=== PATIENT | male | born 1990 | race African-American/Black ===

== ENCOUNTER 2019-02-16 22:57 | Emergency (ER) | payer SELFPAY ==
[2019-02-16] MEDS ORDERED: IBUPROFEN 400 MG TAB ONE (23:43)
[2019-02-16] MEDS ORDERED: LIDOCAINE 2% MPF 5 ML VIAL ONE (23:44)
--- NOTE | 2019-02-17 00:58 | EDPHYS ---
Physician Documentation [facility] Name: Estevan Larsen III Age: 28 yrs Sex: Male : 1990 Arrival Date: 02/16/2019 Time: 23:00 Bed 12 Private MD: ED Physician Isaiah Agee HPI: 02/16 23:25 This 28 yrs old Black Male presents to ER via Ambulatory with complaints of Laceration, cp Finger. 23:25 The patient or guardian reports a laceration, simple. cp 23:25 The complaints affect the MCP of left little finger. Context: resulted from piece of cp glass. Onset: The symptoms/episode began/occurred today. Associated signs and symptoms: Pertinent negatives: cyanosis distally, decreased sensation distally. Severity of symptoms: in the emergency department the symptoms are unchanged, despite home interventions. Historical: - Allergies: 23:02 No Known Allergies; jb4 - Home Meds: 23:02 None [Active]; jb4 - PMHx: 23:02 None; jb4 - PSHx: 23:02 Cholecystectomy; jb4 - Immunization history:: Adult Immunizations up to date, Last tetanus immunization: up to date. - Social history:: Smoking status: Patient uses tobacco products, smokes one pack cigarettes per day. Patient uses alcohol, 2-3 every other day.. - Ebola Screening: : No symptoms or risks identified at this time. ROS: 23:30 Constitutional: Negative for body aches, chills, fever, poor PO intake. cp 23:30 Eyes: Negative for injury, pain, redness, and discharge. cp 23:30 Respiratory: Negative for cough, wheezing. 23:30 Abdomen/GI: Negative for abdominal pain, vomiting, diarrhea, constipation. 23:30 Skin: Positive for laceration(s), of the dorsal aspect of head of fifth metacarpal. 23:30 Neuro: Negative for headache, numbness, weakness. 23:30 All other systems are negative. Exam: 23:45 Constitutional: The patient appears in no acute distress, alert, awake, comfortable, cp well developed, well nourished. 23:45 Head/Face: Normocephalic, atraumatic. cp 23:45 Musculoskeletal/extremity: Extremities: grossly normal except: noted in the dorsal aspect of head of fifth metacarpal: laceration, There is no evidence of decreased ROM, deformity, ROM: full active range of motion, in the left fifth finger, Perfusion: the extremity is normally perfused throughout, Sensation intact. Tendon exam: specific tendon testing normal through active and passive range of motion Vital Signs: 23:02 BP 157 / 78; Pulse 86; Resp 16; Temp 98.5; Pulse Ox 98% on R/A; Weight 113.4 kg (R); jb4 Height 5 ft. 11 in. (180.34 cm); Pain 6/10; 02/17 00:40 BP 140 / 70; Pulse 77; Resp 16; Pulse Ox 99% on R/A; jb4 02/16 23:02 Body Mass Index 34.87 (113.40 kg, 180.34 cm) jb4 Laceration: 01:00 Wound Repair of 3.5cm ( 1.4in ) subcutaneous laceration to MCP of left little finger. cp Linear shaped.. Distal neuro/vascular/tendon intact. Anesthesia: Wound infiltrated with 3 mls of 2% lidocaine. Wound prep: Moderate cleansing by nurse. Skin closed with 5 4-0 Prolene using interrupted sutures and sterile technique. Dressed with Bacitracin, 4x4's. Patient tolerated well. MDM: 02/16 23:16 Patient medically screened. cp 23:45 Differential diagnosis: open fracture, closed fracture, tendon injury, simple cp laceration. 02/17 00:56 ED course: xrays of left hand negative for fracture. cp 00:57 Data reviewed: vital signs, nurses notes, radiologic studies, plain films. cp 00:57 Test interpretation: by ED physician or midlevel provider: plain radiologic studies, cp xrays of left hand negative for fracture. 00:58 Counseling: I had a detailed discussion with the patient and/or guardian regarding: the cp historical points, exam findings, and any diagnostic results supporting the discharge/admit diagnosis, radiology results, the need for outpatient follow up, a family practitioner, to return to the emergency department if symptoms worsen or persist or if there are any questions or concerns that arise at home. 00:58 Response to treatment: the patient's symptoms have markedly improved after treatment, cp and as a result, I will discharge patient. 02/16 23:27 Order name: XRAY Hand LEFT 3 View cp 02/16 23:32 Order name: Hand Left 3 View EDMS 02/16 23:27 Order name: Gloves, Sterile; Complete Time: 23:44 cp 02/16 23:27 Order name: Setup Suture Tray; Complete Time: 23:44 cp 02/16 23:27 Order name: Wound Care: please clean and irrigate wound; Complete Time: 23:44 cp Administered Medications: 02/16 23:33 Drug: Ibuprofen 800 mg Route: PO; jb4 02/17 00:35 Follow up: Response: No adverse reaction; Pain is decreased jb4 00:45 Drug: Lidocaine (2 %) 5 ml {Note: Administered by ED provider..} Volume: 5 ml; Route: aa1 Infiltration; 01:13 Follow up: Response: No adverse reaction aa1 Disposition: 02/17/19 00:58 Discharged to Home. Impression: Laceration without foreign body of left hand. - Condition is Stable. - Discharge Instructions: Laceration Care, Adult. - Prescriptions for Ibuprofen 800 mg Oral Tablet - take 1 tablet by ORAL route every 8 hours As needed take with food; 30 tablet. Keflex 500 mg Oral Capsule - take 1 capsule by ORAL route every 8 hours for 10 days; 21 capsule. - Medication Reconciliation Form, Thank You Letter, Antibiotic Education, Prescription Opioid Use form. - Follow up: Private Physician; When: 7 - 10 days; Reason: Staple/Suture removal. - Problem is new. - Symptoms have improved. Signatures: Dispatcher [employer] [facility] Bianca Tam RN RN aa1 Cash Harmon PA PA cp Bryson, James RN RN jb4 Corrections: (The following items were deleted from the chart) 01:12 02/16 23:27 Dressing - Wound ordered. cp aa1 02/17 01:12 00:56 Splint - Finger ordered. cp aa1 01:16 00:58 02/17/2019 00:58 Discharged to Home. Impression: Laceration without foreign body aa1 of left hand. Condition is Stable. Forms are Medication Reconciliation Form, Thank You Letter, Antibiotic Education, Prescription Opioid Use. Follow up: Private Physician; When: 7 - 10 days; Reason: Staple/Suture removal. Problem is new. Symptoms have improved. cp
--- NOTE | 2019-02-17 00:58 | ER ---
Nurse's Notes [facility] Name: Estevan Larsen III Age: 28 yrs Sex: Male : 1990 Arrival Date: 02/16/2019 Time: 23:00 Bed 12 Private MD: Diagnosis: Laceration without foreign body of left hand Presentation: 02/16 23:02 Presenting complaint: Patient states: I cut the left pinky about 6 hours ago. I tried jb4 to treat it at home with paper stitches but it opened back up and would not stop bleeding. 23:02 Transition of care: patient was not received from another setting of care. Complicating jb4 Factors: There are no complicating factors for this patient. Onset of symptoms was February 16, 2019. Risk Assessment: Do you want to hurt yourself or someone else? Patient reports no desire to harm self or others. Initial Sepsis Screen: Does the patient meet any 2 criteria? No. Patient's initial sepsis screen is negative. Does the patient have a suspected source of infection? No. Patient's initial sepsis screen is negative. Care prior to arrival: None. 23:02 Method Of Arrival: Ambulatory jb4 23:02 Acuity: MAYNOR 4 jb4 Triage Assessment: 23:02 General: Appears in no apparent distress. uncomfortable, Behavior is calm, cooperative, jb4 appropriate for age. Pain: Complains of pain in dorsal aspect of proximal phalanx of left little finger Pain does not radiate. Pain currently is 6 out of 10 on a pain scale. Quality of pain is described as throbbing. EENT: No signs and/or symptoms were reported regarding the EENT system. Neuro: Level of Consciousness is awake, alert, obeys commands, Oriented to person, place, time, situation. Cardiovascular: Patient's skin is warm and dry. Respiratory: Airway is patent Respiratory effort is even, unlabored, Respiratory pattern is regular, symmetrical. GI: No signs and/or symptoms were reported involving the gastrointestinal system. : No signs and/or symptoms were reported regarding the genitourinary system. Derm: Skin Laceration to the left pinky Skin is dry, Skin is normal, Skin temperature is warm. Musculoskeletal: Circulation, motion, and sensation intact. Range of motion: intact in all extremities. Injury Description: Laceration sustained to dorsal aspect of proximal phalanx of left little finger is clean, contaminated, 2.6 to 7.5 cm long, not bleeding. Historical: - Allergies: 23:02 No Known Allergies; jb4 - Home Meds: 23:02 None [Active]; jb4 - PMHx: 23:02 None; jb4 - PSHx: 23:02 Cholecystectomy; jb4 - Immunization history:: Adult Immunizations up to date, Last tetanus immunization: up to date. - Social history:: Smoking status: Patient uses tobacco products, smokes one pack cigarettes per day. Patient uses alcohol, 2-3 every other day.. - Ebola Screening: : No symptoms or risks identified at this time. Screenin:02 Abuse screen: Denies threats or abuse. Nutritional screening: No deficits noted. 4 Tuberculosis screening: No symptoms or risk factors identified. Fall Risk None identified. Assessment: 23:02 General: see triage assessment. [facility] 02/17 00:34 Reassessment: Patient appears in no apparent distress at this time. Patient and/or jb4 family updated on plan of care and expected duration. Pain level reassessed. Patient is alert, oriented x 3, equal unlabored respirations, skin warm/dry/pink. Patient states feeling better. 01:14 Reassessment: Patient appears in no apparent distress at this time. Patient and/or aa1 family updated on plan of care and expected duration. Pain level reassessed. Patient is alert, oriented x 3, equal unlabored respirations, skin warm/dry/pink. Pt left ED ambulatory, with steady gate. No IV access this ED visit. Vital Signs: 02/16 23:02 BP 157 / 78; Pulse 86; Resp 16; Temp 98.5; Pulse Ox 98% on R/A; Weight 113.4 kg (R); 4 Height 5 ft. 11 in. (180.34 cm); Pain 6/10; 02/17 00:40 BP 140 / 70; Pulse 77; Resp 16; Pulse Ox 99% on R/A; 4 02/16 23:02 Body Mass Index 34.87 (113.40 kg, 180.34 cm) [facility] ED Course: 02/16 23:00 Patient arrived in ED. es 23:02 Arm band placed on right wrist. jb4 23:02 Patient has correct armband on for positive identification. Pulse ox on. NIBP on. jb4 23:09 Omar Schreiber, RN is Primary Nurse. jb4 23:10 Triage completed. jb4 23:16 Cash Harmon PA is PHCP. cp 23:16 Isaiah Agee MD is Attending Physician. cp 23:45 Hand Left 3 View In Process Unspecified. EDMS 02/17 00:36 XRAY Hand LEFT 3 View In Process Unspecified. EDMS 00:45 Assist provider with laceration repair on dorsal aspect of proximal phalanx of left aa1 little finger that was between 2.6 to 7.5 cm using sutures. Set up tray. Performed by Cash GONZALES Patient tolerated well. 00:45 Patient did not have IV access during this emergency room visit. aa1 Administered Medications: 02/16 23:33 Drug: Ibuprofen 800 mg Route: PO; jb4 02/17 00:35 Follow up: Response: No adverse reaction; Pain is decreased jb4 00:45 Drug: Lidocaine (2 %) 5 ml {Note: Administered by ED provider..} Volume: 5 ml; Route: aa1 Infiltration; 01:13 Follow up: Response: No adverse reaction aa1 Outcome: 00:58 Discharge ordered by . cp 01:16 Discharged to home ambulatory. aa1 01:16 Condition: stable 01:16 Discharge instructions given to patient, Instructed on discharge instructions, follow up and referral plans. medication usage, Demonstrated understanding of instructions, follow-up care, medications, Prescriptions given X 2. 01:16 Patient left the ED. aa1 Signatures: Dispatcher [employer] [facility] Bianca Tam RN RN aa1 Nicole Magaña Corey, PA PA cp Omar Schreiber, RN RN jb4
--- NOTE | 2019-02-17 07:51 | RAD REPORT ---
EXAM DESCRIPTION: RAD -Hand Left 3 View - 02/16/2019 11:45 pm CLINICAL HISTORY: Left hand pain status post injury FINDINGS: No fracture or dislocation is seen.
[2019-02-17 10:19] VITALS: TEMP 98.5
[2019-02-17 10:20] VITALS: BP 140/70; O2SAT 99
== END 2019-02-17 01:16 | disposition home or self-care (01) ==
LOC: ER 22:57
PROC: 0JQK0ZZ Repair Left Hand Subcutaneous Tissue and Fascia, Open Approach (ICD-10-PCS; principal; 2019-02-16)
DX: S61.217A Laceration without foreign body of left little finger without damage to nail, initial encounter (principal); W25.XXXA Contact with sharp glass, initial encounter; F17.210 Nicotine dependence, cigarettes, uncomplicated
CPT/HCPCS: 99284

== ENCOUNTER 2019-02-27 23:23 | Emergency (ER) | payer SELFPAY ==
[2019-02-27] MEDS ORDERED: KETOROLAC 30 MG/ML INJ ONE (23:58)
[2019-02-27] MEDS ORDERED: NA CHLORIDE 0.9% 1,000 ML ONE (23:58)
[2019-02-28 00:18] LABS: Absolute Lymphocytes (CBC) 1.7 K/uL (0.7-4.9); Absolute Neutrophil 13.3 K/uL (1.8-8.0); Basophils % 0.5 % (0-1.3); Eosinophils % 0.3 % (0-4.4); Hematocrit 52.2 % (39.6-49.0); Lymphocytes % 10.7 % (15.3-44.8); MPV 8.4 fL (7.6-11.3); RBC Red Blood Cell Count 6.07 M/uL (4.33-5.43)
[2019-02-28 00:33] LABS: BUN Blood Urea Nitrogen 5 mg/dL (7-18); Bicarbonate 23 mmol/L (21-32); Glucose Level 88 mg/dL (74-106); Potassium 3.8 mmol/L (3.5-5.1); Sodium Level 140 mmol/L (136-145)
[2019-02-28] MEDS ORDERED: SMZ./TMP. 800/160 MG TABLET ONE (00:54)
[2019-02-28] MEDS ORDERED: CLINDAMYCIN 900MG/D5W 900 MG/50 ML IVPB IV ONE (00:54)
--- NOTE | 2019-02-28 01:07 | ER ---
Nurse's Notes [facility] Name: Estevan Larsen III Age: 28 yrs Sex: Male : 1990 Arrival Date: 02/27/2019 Time: 23:24 Bed 14 Private MD: Diagnosis: Other synovitis and tenosynovitis, hand-right thumb Presentation: 02/27 23:31 Presenting complaint: Patient states: Swelling to right thumb after injury at work with lp1 rebar a month ago; Seen at [place] [facility] a few days ago, unable to fill prescriptions due to cost; States swelling and pain to right thumb worse. Transition of care: patient was not received from another setting of care. Onset of symptoms was February 27, 2019. Risk Assessment: Do you want to hurt yourself or someone else? Patient reports no desire to harm self or others. Care prior to arrival: None. 23:31 Method Of Arrival: Ambulatory lp1 23:31 Acuity: MAYNOR 3 lp1 23:34 Initial Sepsis Screen: Does the patient meet any 2 criteria? HR > 90 bpm. Does the lp1 patient have a suspected source of infection? Yes: Other: Right thumb. Historical: - Allergies: 23:34 No Known Allergies; lp1 - Home Meds: 23:34 None [Active]; lp1 - PMHx: 23:34 Hypertension; lp1 - PSHx: 23:34 Cholecystectomy; lp1 - Immunization history:: Adult Immunizations up to date. - Social history:: Smoking status: Patient uses tobacco products, smokes one-half pack cigarettes per day. - Ebola Screening: : No symptoms or risks identified at this time. Screenin:34 Abuse screen: Denies threats or abuse. Denies injuries from another. Nutritional lp1 screening: No deficits noted. Tuberculosis screening: No symptoms or risk factors identified. Fall Risk None identified. Assessment: 23:30 General: Appears in no apparent distress. uncomfortable, Behavior is calm, cooperative, rr5 appropriate for age. Pain: Complains of pain in right thumb Pain does not radiate. Pain currently is 10 out of 10 on a pain scale. Quality of pain is described as throbbing, Pain began gradually, Is intermittent. Neuro: Level of Consciousness is awake, alert, obeys commands, Oriented to person, place, time, situation, Appropriate for age. Cardiovascular: Capillary refill < 3 seconds Patient's skin is warm and dry. Respiratory: Airway is patent Respiratory effort is even, unlabored, Respiratory pattern is regular, symmetrical. GI: No signs and/or symptoms were reported involving the gastrointestinal system. : No signs and/or symptoms were reported regarding the genitourinary system. EENT: No signs and/or symptoms were reported regarding the EENT system. Derm: Skin temperature is warm Wound noted right thumb Wound is punctured wound. Musculoskeletal: Capillary refill < 3 seconds, Swelling present in right thumb. 02/28 00:15 Reassessment: Patient appears in no apparent distress at this time. Patient and/or rr5 family updated on plan of care and expected duration. Pain level reassessed. Patient is alert, oriented x 3, equal unlabored respirations, skin warm/dry/pink. 00:45 Reassessment: Patient appears in no apparent distress at this time. Patient is alert, rr5 oriented x 3, equal unlabored respirations, skin warm/dry/pink. re examined by dr. jimenez and pawan CALDERA for transfer to other facility. patient agreed. 01:06 Reassessment: Patient appears in no apparent distress at this time. No changes from jd3 previously documented assessment. Patient and/or family updated on plan of care and expected duration. Pain level reassessed. Patient is alert, oriented x 3, equal unlabored respirations, skin warm/dry/pink. 01:40 Reassessment: Patient appears in no apparent distress at this time. Patient and/or jd3 family updated on plan of care and expected duration. Pain level reassessed. Patient is alert, oriented x 3, equal unlabored respirations, skin warm/dry/pink. 02:41 Reassessment: Patient appears in no apparent distress at this time. Patient and/or jd3 family updated on plan of care and expected duration. Pain level reassessed. Patient is alert, oriented x 3, equal unlabored respirations, skin warm/dry/pink. awaiting EMS for transportation for transfer. 03:01 Reassessment: Patient appears in no apparent distress at this time. Patient and/or jd3 family updated on plan of care and expected duration. Pain level reassessed. Patient is alert, oriented x 3, equal unlabored respirations, skin warm/dry/pink. report given to EMS. Vital Signs: 02/27 23:33 BP 138 / 84; Pulse 117; Resp 18; Temp 99.6(O); Pulse Ox 96% on R/A; Weight 111.13 kg; lp1 Height 5 ft. 11 in. (180.34 cm); Pain 9/10; 02/28 00:00 BP 116 / 72; Pulse 99; Resp 17; Pulse Ox 99% on R/A; rr5 00:46 BP 128 / 80; Pulse 90; Resp 17; Temp 98.1; Pulse Ox 99% on R/A; rr5 01:39 BP 138 / 89; Pulse 101; Resp 17 S; Pulse Ox 99% on R/A; jd3 03:00 BP 126 / 82; Pulse 95; Resp 17 S; Pulse Ox 99% on R/A; jd3 02/27 23:33 Body Mass Index 34.17 (111.13 kg, 180.34 cm) lp1 ED Course: 02/27 00:00 Initial lab(s) drawn, by me, sent to lab. First set of blood cultures drawn. rr5 23:24 Patient arrived in ED. am2 23:29 Cash Harmon PA is PHCP. cp 23:29 Jamar Jimenez MD is Attending Physician. cp 23:30 Lukasz Desir, RN is Primary Nurse. rr5 23:30 Patient has correct armband on for positive identification. Bed in low position. Call jd3 light in reach. Side rails up X 1. 23:33 Triage completed. lp1 23:33 Arm band placed on left wrist. lp1 02/28 00:00 Inserted saline lock: 20 gauge in left forearm, using aseptic technique. Blood rr5 collected. 00:09 XRAY Hand RIGHT 3 View In Process Unspecified. EDMS 01:06 Primary Nurse role handed off by Lukasz Desir, RN jd3 01:06 Hakeem Logan, JOSELITO is Primary Nurse. jd3 01:33 No provider procedures requiring assistance completed. Patient transferred, IV remains fc in place. Administered Medications: 02/27 00:00 Drug: NS 0.9% 1000 ml Route: IV; Rate: 1 bolus; Site: left forearm; rr5 02/28 00:50 Follow up: Response: No adverse reaction; IV Status: Completed infusion; IV Intake: rr5 1000ml 02/27 00:02 Drug: TORadol 30 mg Route: IVP; Site: left forearm; rr5 02/28 01:00 Follow up: Response: No adverse reaction rr5 00:45 Drug: Clindamycin 900 mg Route: IVPB; Infused Over: 30 mins; Site: left forearm; rr5 01:15 Follow up: Response: No adverse reaction; IV Status: Completed infusion; IV Intake: [id number] 00:47 Drug: Bactrim (160 mg-800 mg (DS) 1 tablet Route: PO; rr5 01:41 Follow up: Response: No adverse reaction jd3 Intake: 00:50 IV: 1000ml; Total: 1000ml. rr5 01:15 IV: 50ml; Total: 1050ml. jd3 Outcome: 01:06 ER care complete, transfer ordered by MD. moctezuma 01:31 Transferred by ground EMS to [facility], Transfer form fc completed. Note: report called to Ella YEE [phone] 01:33 Condition: good fc 01:33 Discharge instructions given to patient, Instructed on the need for transfer, Demonstrated understanding of instructions. 03:03 Patient left the ED. jd3 Signatures: Dispatcher [employer] EDMS Jeanne Keith RN RN fc Makenzie Francis RN RN lp1 Cash Harmon PA PA cp Moreno, Amanda am2 Davies, Jonathon RN RN jd3 Lukasz Desir RN RN rr5
--- NOTE | 2019-02-28 01:07 | EDPHYS ---
Physician Documentation [facility] Name: Estevan Larsen III Age: 28 yrs Sex: Male : 1990 Arrival Date: 02/27/2019 Time: 23:24 Bed 14 Private MD: ED Physician Jamar Greenfield HPI: 02/27 23:34 This 28 yrs old Black Male presents to ER via Ambulatory with complaints of thumb cp swelling. 23:34 The patient or guardian reports pain, swelling, tenderness. The complaints affect the cp proximal right thumb. 23:34 Context: resulted from work injury 1 month ago. Onset: The symptoms/episode cp began/occurred 1 week(s) ago. Associated signs and symptoms: Pertinent negatives: cyanosis distally, fever, numbness distally. The patient has been recently seen by a physician: in [place] ED, 1 week(s) ago, with similar presenting complaints, given RXs for oral clindamycin and Keflex but has not filled RXs due to cost. Historical: - Allergies: 23:34 No Known Allergies; lp1 - Home Meds: 23:34 None [Active]; lp1 - PMHx: 23:34 Hypertension; lp1 - PSHx: 23:34 Cholecystectomy; lp1 - Immunization history:: Adult Immunizations up to date. - Social history:: Smoking status: Patient uses tobacco products, smokes one-half pack cigarettes per day. - Ebola Screening: : No symptoms or risks identified at this time. ROS: 23:40 Constitutional: Negative for body aches, chills, fever, poor PO intake. cp 23:40 Eyes: Negative for injury, pain, redness, and discharge. cp 23:40 ENT: Negative for drainage from ear(s), ear pain, sore throat, difficulty swallowing, difficulty handling secretions. 23:40 Respiratory: Negative for cough, shortness of breath, wheezing. 23:40 Abdomen/GI: Negative for abdominal pain, nausea, vomiting, and diarrhea. 23:40 Back: Negative for pain at rest, pain with movement. 23:40 MS/extremity: Positive for decreased range of motion, pain, swelling, tenderness, warmth, of the right thumb, Negative for paresthesias. 23:40 Neuro: Negative for numbness, tingling. 23:40 All other systems are negative. Exam: 23:45 Constitutional: The patient appears in no acute distress, alert, awake, non-toxic, well cp developed, well nourished. 23:45 Head/Face: Normocephalic, atraumatic. cp 23:45 Eyes: Periorbital structures: appear normal, Conjunctiva: normal, no exudate, no injection, Sclera: no appreciated abnormality, Lids and lashes: appear normal, bilaterally. 23:45 ENT: External ear(s): are unremarkable, Nose: is normal, Mouth: Lips: moist, Oral mucosa: moist, Posterior pharynx: is normal, airway is patent, no erythema, no exudate. 23:45 Chest/axilla: Inspection: normal, Palpation: is normal, no crepitus, no tenderness. 23:45 Cardiovascular: Rate: tachycardic, Rhythm: regular. 23:45 Respiratory: the patient does not display signs of respiratory distress, Respirations: normal, no use of accessory muscles, no retractions, no splinting, no tachypnea, labored breathing, is not present, Breath sounds: are clear throughout, no decreased breath sounds, no stridor, no wheezing. 23:45 Abdomen/GI: Inspection: abdomen appears normal, Palpation: abdomen is soft and non-tender, in all quadrants. 23:45 Skin: cellulitis, that is moderate, on the right thumb, noted swelling andrea side from proximal phalanx to hyper thenar eminence. Vital Signs: 23:33 BP 138 / 84; Pulse 117; Resp 18; Temp 99.6(O); Pulse Ox 96% on R/A; Weight 111.13 kg; lp1 Height 5 ft. 11 in. (180.34 cm); Pain 9/10; 02/28 00:00 BP 116 / 72; Pulse 99; Resp 17; Pulse Ox 99% on R/A; rr5 00:46 BP 128 / 80; Pulse 90; Resp 17; Temp 98.1; Pulse Ox 99% on R/A; rr5 01:39 BP 138 / 89; Pulse 101; Resp 17 S; Pulse Ox 99% on R/A; jd3 03:00 BP 126 / 82; Pulse 95; Resp 17 S; Pulse Ox 99% on R/A; jd3 02/27 23:33 Body Mass Index 34.17 (111.13 kg, 180.34 cm) lp1 MDM: 02/27 23:30 Patient medically screened. cp 02/28 00:35 ED course: xrays of right hand negative for fracture. cp 01:00 Data reviewed: vital signs, nurses notes, lab test result(s), radiologic studies, plain cp films. 01:00 Test interpretation: by ED physician or midlevel provider: plain radiologic studies. cp Response to treatment: the patient's symptoms have mildly improved after treatment. 01:04 Physician consultation: DR Azar, hand surgeon \T\[facility], will accept patient cp as ED to ED transfer for evaluation. 02/27 23:39 Order name: CBC with Diff; Complete Time: 00:22 cp 02/28 00:22 Interpretation: Normal except: WBC 16.1; RBC 6.07; HCT 52.2; KEVIN% 82.5; LYM% 10.7; NEUT cp A 13.3. 02/27 23:39 Order name: Blood Culture Adult (2) cp 02/27 23:39 Order name: XRAY Hand RIGHT 3 View cp 02/27 23:39 Order name: BMP; Complete Time: 00:36 cp 02/28 00:35 Interpretation: Normal except: CL 108; BUN 5; CA 8.3. cp 02/27 23:39 Order name: IV; Complete Time: 00:00 cp 02/28 01:05 Order name: NPO; Complete Time: 01:05 cp Administered Medications: 02/27 00:00 Drug: NS 0.9% 1000 ml Route: IV; Rate: 1 bolus; Site: left forearm; rr5 02/28 00:50 Follow up: Response: No adverse reaction; IV Status: Completed infusion; IV Intake: rr5 1000ml 02/27 00:02 Drug: TORadol 30 mg Route: IVP; Site: left forearm; rr5 02/28 01:00 Follow up: Response: No adverse reaction rr5 00:45 Drug: Clindamycin 900 mg Route: IVPB; Infused Over: 30 mins; Site: left forearm; rr5 01:15 Follow up: Response: No adverse reaction; IV Status: Completed infusion; IV Intake: [id number] 00:47 Drug: Bactrim (160 mg-800 mg (DS) 1 tablet Route: PO; rr5 01:41 Follow up: Response: No adverse reaction jd3 Disposition: 03:35 Co-signature as Attending Physician, Jamar Greenfield MD. pkl Disposition: 02/28/19 01:[address] [facility]. Diagnosis is Other synovitis and tenosynovitis, hand - right thumb. - Reason for transfer: Higher level of care. - Accepting physician is DR Azar. - Condition is Stable. - Problem is an ongoing problem. - Symptoms have improved. Signatures: Dispatcher [employer] EDMA Jamar Greenfield MD MD pkl Makenzie Francis RN RN lp1 Cash Harmon PA PA cp Davies, Jonathon RN RN jd3 Lukasz Desir RN RN rr5 Corrections: (The following items were deleted from the chart) 00:36 00:35 Normal except: CL 108; BUN 5. cp cp 03:03 01:06 02/28/2019 01:[address] [facility]. Diagnosis is Other synovitis jd3 and tenosynovitis, hand - right thumb. Reason for transfer: Higher level of care. Accepting physician is DR Azar. Condition is Stable. Problem is an ongoing problem. Symptoms have improved. cp
[2019-02-28 03:16] VITALS: O2SAT 99
[2019-02-28 03:17] VITALS: TEMP 98.1
[2019-02-28 03:20] VITALS: BP 126/82
--- NOTE | 2019-02-28 11:03 | RAD REPORT ---
EXAM DESCRIPTION: RAD - Hand Right 3 View - 02/28/2019 12:07 am CLINICAL HISTORY: SWELLING COMPARISON: No comparisons FINDINGS: Prominent soft tissue swelling affects the first finger. No fracture, dislocation or radio paque foreign body.
== END 2019-02-28 03:03 | disposition short-term general hospital (02) ==
LOC: ER 23:23
DX: M65.841 Other synovitis and tenosynovitis, right hand (principal); I10 Essential (primary) hypertension; F17.210 Nicotine dependence, cigarettes, uncomplicated
CPT/HCPCS: 36415; 80048; 85025; 87040; 96361; 96365; 96375; 99285; J7030

== ENCOUNTER 2020-03-01 01:27 | Emergency (ER) | payer SELFPAY ==
--- OUTSIDE RECORDS SUMMARY | 2020-03-01 01:29 | XMS REPORT ---
:1990 Author Organization [facility] t Address [address] [place] [address] [address] [place] [address] Care Team Providers Name Role Phone Unavailable Unavailable Unavailable Problems This patient has no known problems. Allergies, Adverse Reactions, Alerts This patient has no known allergies or adverse reactions. Medications This patient has no known medications. Procedures This patient has no known procedures. Results This patient has no known results.
[2020-03-01] MEDS ORDERED: SMZ./TMP. 800/160 MG TABLET ONE (02:07)
[2020-03-01] MEDS ORDERED: HYDROCODONE/APAP 10/325 TAB ONE (02:07)
[2020-03-01 05:19] VITALS: BP 144/87; TEMP 97.6; O2SAT 98
--- NOTE | 2020-03-02 13:17 | RAD REPORT ---
EXAM DESCRIPTION: RAD LEFT HAND TWO VIEWS CLINICAL HISTORY: Smash injury to the left middle finger. COMPARISON: Left hand February 2019. TECHNIQUE: AP and lateral views of the left hand obtained. FINDINGS: Tuft fracture is present on the radial side distal phalanx third digit. No significant distraction or angulation. No other fracture change is present. Soft tissue swelling is present around the third digit. No foreign body is present. IMPRESSION: Tuft fracture distal phalanx left third digit as detailed.
--- NOTE | 2020-03-07 12:52 | EDPHYS ---
Physician Documentation [facility] Name: Estevan Larsen III Age: 29 yrs Sex: Male : 1990 Arrival Date: 03/01/2020 Time: 01:28 Bed 14 Private MD: ED Physician Dianne Moss HPI: 03/01 02:01 This 29 yrs old Black Male presents to ER via Ambulatory with complaints of Finger ma2 Injury. 02:01 Trauma demographics: County: The injury occurred in [place] Date: March 01, 2020. ma2 Mechanism of injury: Crush injury:. Onset: The symptoms/episode began/occurred acutely, 5 hour(s) ago. The patient has not experienced similar symptoms in the past. seen at [facility] received stitches and xray that showed emanuel fracture, he did not receive pain rx or antibiotics. that is why he is here today. . Historical: - Allergies: 01:31 No Known Allergies; sg - PMHx: 01:31 Hypertension; sg - PSHx: :31 Cholecystectomy; sg - Immunization history:: Adult Immunizations up to date. - Social history:: Smoking status: Patient denies any tobacco usage or history of. Patient/guardian denies using alcohol, street drugs, The patient lives with family. - Family history:: not pertinent. ROS: 02:01 Constitutional: Negative for fever, chills, and weight loss. ma2 02:01 All other systems are negative. Exam: 02:01 Constitutional: This is a well developed, well nourished patient who is awake, alert, ma2 and in no acute distress. ENT: Nares patent. No nasal discharge, no septal abnormalities noted. Tympanic membranes are normal and external auditory canals are clear. Oropharynx with no redness, swelling, or masses, exudates, or evidence of obstruction, uvula midline. Mucous membranes moist. Neck: Trachea midline, no thyromegaly or masses palpated, and no cervical lymphadenopathy. Supple, full range of motion without nuchal rigidity, or vertebral point tenderness. No Meningismus. Chest/axilla: Normal chest wall appearance and motion. Nontender with no deformity. No lesions are appreciated. Cardiovascular: Regular rate and rhythm with a normal S1 and S2. No gallops, murmurs, or rubs. Normal PMI, no JVD. No pulse deficits. Respiratory: Lungs have equal breath sounds bilaterally, clear to auscultation and percussion. No rales, rhonchi or wheezes noted. No increased work of breathing, no retractions or nasal flaring. Abdomen/GI: Soft, non-tender, with normal bowel sounds. No distension or tympany. No guarding or rebound. No evidence of tenderness throughout. Back: No spinal tenderness. No costovertebral tenderness. Full range of motion. Skin: Warm, dry with normal turgor. Normal color with no rashes, no lesions, and no evidence of cellulitis. MS/ Extremity: left middle finger shows laceration that has been repaired by stiches, wound is dry and in good order, the whol finger is tender otherwise, cap refill is wnl, Pulses equal, no cyanosis. Neurovascular intact. Full, normal range of motion. Neuro: Awake and alert, GCS 15, oriented to person, place, time, and situation. Cranial nerves II-XII grossly intact. Motor strength 5/5 in all extremities. Sensory grossly intact. Cerebellar exam normal. Normal gait. Vital Signs: 01:36 BP 144 / 87; Pulse 90; Resp 17; Temp 97.6(O); Pulse Ox 98% on R/A; Weight 99.79 kg; ar5 Height 5 ft. 11 in. (180.34 cm); Pain 10/10; 01:36 Body Mass Index 30.68 (99.79 kg, 180.34 cm) ar5 MDM: 01:34 Patient medically screened. pr2 02:01 Differential diagnosis: laceration, emanuel frx, no cellulitis no sign of osteomyelitis. ma2 Data reviewed: vital signs, nurses notes. Counseling: I had a detailed discussion with the patient and/or guardian regarding: the historical points, exam findings, and any diagnostic results supporting the discharge/admit diagnosis, the presence of at least one elevated blood pressure reading (>120/80) during this emergency department visit, the need for outpatient follow up. Response to treatment: the patient's symptoms have markedly improved after treatment. 03/01 01:43 Order name: Hand Left 2 View XRAY [facility] 03/01 01:50 Order name: Wound Care: irregation with iodine; Complete Time: 02:29 [facility] 03/01 01:50 Order name: Finger Splint; Complete Time: 02:29 ma2 Administered Medications: 02:05 Drug: [place] 10 mg-325 mg 1 tabs Route: PO; mg2 02:20 Follow up: Response: No adverse reaction mg2 02:05 Drug: Clindamycin 300 mg Route: PO; mg2 02:20 Follow up: Response: No adverse reaction mg2 02:05 Drug: Bactrim 160 mg-800 mg (DS) 160 mg Route: PO; mg2 02:20 Follow up: Response: No adverse reaction mg2 Disposition: 03/01/20 02:05 Discharged to Home. Impression: Crushing injury of left middle finger. - Condition is Stable. - Prescriptions for Clindamycin HCl 300 mg Oral Capsule - take 1 capsule by ORAL route every 6 hours for 10 days; 40 capsule. Bactrim DS 800- 160 mg Oral Tablet - take 1 tablet by ORAL route every 12 hours for 5 days; 10 tablet. - Medication Reconciliation Form, Thank You Letter, Antibiotic Education, Prescription Opioid Use form. - Follow up: Private Physician; When: Tomorrow; Reason: Continuance of care. Signatures: Dispatcher [employer] EDTen Granad RN RN Dianne Moss MD MD ma2 Jim Perez RN RN mg2 Corrections: (The following items were deleted from the chart) 02:39 02:05 03/01/2020 02:05 Discharged to Home. Impression: Crushing injury of left middle mg2 finger. Condition is Stable. Prescriptions for Clindamycin HCl 300 mg Oral Capsule - take 1 capsule by ORAL route every 6 hours for 10 days; 40 capsule, Bactrim DS 800-160 mg Oral Tablet - take 1 tablet by ORAL route every 12 hours for 5 days; 10 tablet. and Forms are Medication Reconciliation Form, Thank You Letter, Antibiotic Education, Prescription Opioid Use. Follow up: Private Physician; When: Tomorrow; Reason: Continuance of care. ma2
--- NOTE | 2020-03-07 12:52 | ER ---
Nurse's Notes [facility] Name: Estevan Larsen III Age: 29 yrs Sex: Male : 1990 Arrival Date: 03/01/2020 Time: : Bed 14 Private MD: Diagnosis: Crushing injury of left middle finger Presentation: 03/01 01:31 Chief complaint: Chief complaint: Patient states: I smashed my finger between a boat sg and a post, reports pain to the left middle finger, applied a dressing [employer]. Coronavirus screen: Proceed with normal triage. Ebola Screen: Patient negative for fever greater than or equal to 101.5 degrees Fahrenheit, and additional compatible Ebola Virus Disease symptoms Patient denies exposure to infectious person. Patient denies travel to an Ebola-affected area in the 21 days before illness onset. No symptoms or risks identified at this time. Initial Sepsis Screen: Does the patient meet any 2 criteria? No. Patient's initial sepsis screen is negative. Does the patient have a suspected source of infection? No. Patient's initial sepsis screen is negative. Risk Assessment: Do you want to hurt yourself or someone else? Patient reports no desire to harm self or others. Onset of symptoms was March 01, 2020. Care prior to arrival: None. Transition of care: patient was not received from another setting of care. 01:31 Acuity: MAYNOR 3 sg 01:31 Method Of Arrival: Ambulatory sg Triage Assessment: 02:00 General: Appears in no apparent distress. comfortable, Behavior is calm, cooperative. mg2 02:00 Injury Description: Crush injury. mg2 Historical: - Allergies: : No Known Allergies; sg - PMHx: 01:31 Hypertension; sg - PSHx: :31 Cholecystectomy; sg - Immunization history:: Adult Immunizations up to date. - Social history:: Smoking status: Patient denies any tobacco usage or history of. Patient/guardian denies using alcohol, street drugs, The patient lives with family. - Family history:: not pertinent. Screenin:00 Abuse screen: Denies threats or abuse. Denies injuries from another. Nutritional mg2 screening: No deficits noted. Tuberculosis screening: No symptoms or risk factors identified. 02:00 Fall Risk None identified. mg2 Assessment: 02:00 General: Appears in no apparent distress. comfortable, Behavior is calm, cooperative. mg2 Pain: Complains of pain in left middle finger. Neuro: Level of Consciousness is awake, alert, obeys commands, Oriented to person, place, time, situation. Cardiovascular: Capillary refill < 3 seconds Patient's skin is warm and dry. Respiratory: Airway is patent Respiratory effort is even, unlabored, Respiratory pattern is regular, symmetrical. GI: No signs and/or symptoms were reported involving the gastrointestinal system. : No signs and/or symptoms were reported regarding the genitourinary system. EENT: No signs and/or symptoms were reported regarding the EENT system. Derm: Wound noted left middle finger Wound is post sutured wound with close fracture. Musculoskeletal: Circulation, motion, and sensation intact. Capillary refill < 3 seconds. Injury Description: Crush injury sustained to left middle finger. Vital Signs: 01:36 BP 144 / 87; Pulse 90; Resp 17; Temp 97.6(O); Pulse Ox 98% on R/A; Weight 99.79 kg; ar5 Height 5 ft. 11 in. (180.34 cm); Pain 10/10; 01:36 Body Mass Index 30.68 (99.79 kg, 180.34 cm) ar5 ED Course: 01:28 Patient arrived in ED. ds1 01:31 Arm band placed on. sg 01:34 Dianne Moss MD is Attending Physician. ma2 01:35 Triage completed. sg 01:39 Jim Perez RN is Primary Nurse. mg2 02:00 Patient has correct armband on for positive identification. mg2 02:03 Hand Left 2 View XRAY In Process Unspecified. EDMS 02:05 No provider procedures requiring assistance completed. mg2 02:05 Patient did not have IV access during this emergency room visit. mg2 02:10 Wound care: to post sutured wound in the left middle finger- done in [facility] mg2 yesterday was cleaned with Betadine, irrigated with normal saline, dressed with 4X4s, splint and dressing applied, Patient tolerated well. Administered Medications: 02:05 Drug: [place] 10 mg-325 mg 1 tabs Route: PO; mg2 02:20 Follow up: Response: No adverse reaction mg2 02:05 Drug: Clindamycin 300 mg Route: PO; mg2 02:20 Follow up: Response: No adverse reaction mg2 02:05 Drug: Bactrim 160 mg-800 mg (DS) 160 mg Route: PO; mg2 02:20 Follow up: Response: No adverse reaction mg2 Outcome: 02:05 Discharge ordered by . nusrat 02:38 Discharged to home ambulatory. mg2 02:38 Condition: stable 02:38 Discharge instructions given to patient, Instructed on discharge instructions, follow mg2 up and referral plans. medication usage, Demonstrated understanding of instructions, follow-up care, medications, wound care, Prescriptions given X 2. 02:39 Patient left the ED. mg2 Signatures: Dispatcher [employer] EDTen Granda RN RN sg Madison Sanchez ds1 Dianne Moss MD MD ma2 Gardose, Michele, RN RN mg2 Gilma Melgoza ar5 Corrections: (The following items were deleted from the chart) 01:37 01:31 Chief complaint: sg sg
== END 2020-03-01 02:39 | disposition home or self-care (01) ==
LOC: ER 01:27
DX: S67.193A Crushing injury of left middle finger, initial encounter (principal); I10 Essential (primary) hypertension; X58.XXXA Exposure to other specified factors, initial encounter; Y93.9 Activity, unspecified; Y92.89 Other specified places as the place of occurrence of the external cause
CPT/HCPCS: 99284

== ENCOUNTER 2024-07-11 17:10 | Emergency (ER) | payer OTHER ==
--- OUTSIDE RECORDS SUMMARY | 2024-07-11 17:12 | XMS REPORT | Continuity of Care Document ---
Author Name Unknown Address [address] [place] [address] [employer] Address [address] [place] [address] [place] [id number] Care Team Providers Care Grape Crusher Name Role Phone Unavailable Unavailable Unavailable
--- NOTE | 2024-07-11 17:20 | ER ---
Nurse's Notes [facility] Name: Estevan Larsen III Age: 33 yrs Sex: Male : 1990 Arrival Date: 07/11/2024 Time: 17:10 Bed 19 Private MD: Diagnosis: Dental caries, unspecified;Cracked tooth Presentation: 07/11 17:18 Chief complaint: Right upper molar broken, c/o pain 03/16. Coronavirus screen: At this hb time, the client does not indicate any symptoms associated with coronavirus-19. Ebola Screen: No symptoms or risks identified at this time. Initial Sepsis Screen: Does the patient meet any 2 criteria? No. Patient's initial sepsis screen is negative. Does the patient have a suspected source of infection? No. Patient's initial sepsis screen is negative. Risk Assessment: Do you want to hurt yourself or someone else? Patient reports no desire to harm self or others. Onset of symptoms was July 11, 2024. 17:18 Method Of Arrival: Ambulatory hb 17:18 Acuity: MAYNOR 4 hb Historical: - Allergies: 17:19 No Known Allergies; hb - Home Meds: 17:19 None [Active]; hb - PMHx: 17:19 Hypertension; hb - PSHx: 17:19 None; hb - Immunization history:: Adult Immunizations up to date. - Infectious Disease History:: Denies. - Social history:: Smoking status: Patient reports the use of cigarette tobacco products, smokes one pack cigarettes per day. Screenin:46 [facility] ED Fall Risk Assessment (Adult) History of falling in the last 3 months, db including since admission No falls in past 3 months (0 pts) Confusion or Disorientation No (0 pts) Intoxicated or Sedated No (0 pts) Impaired Gait No (0 pts) Mobility Assist Device Used No (0 pt) Altered Elimination No (0 pt) Score/Fall Risk Level 0 - 2 = Low Risk Oriented to surroundings, Maintained a safe environment. Abuse screen: Denies threats or abuse. Denies injuries from another. Nutritional screening: No deficits noted. Tuberculosis screening: No symptoms or risk factors identified. Assessment: 17:46 Reassessment: Patient appears in no apparent distress at this time. Patient and/or db family updated on plan of care and expected duration. Pain level reassessed. Patient is alert, oriented x 3, equal unlabored respirations, skin warm/dry/pink. General: Appears in no apparent distress. comfortable, Behavior is calm, cooperative. Pain: Complains of pain in mouth and right buccal mucosa. Neuro: Level of Consciousness is awake, alert, obeys commands, Oriented to person, place, time, situation. Respiratory: Airway is patent Respiratory effort is even, unlabored, Respiratory pattern is regular, symmetrical. EENT: Dental caries noted in upper right first bicuspid and upper right second bicuspid and upper right first molar and upper right second molar. Vital Signs: 17:18 BP 146 / ???; Pulse 82; Resp 72; Temp 98.2(O); Pulse Ox 98% on R/A; Weight 113.4 kg; hb Height 6 ft. 0 in. ; Pain 6/10; 17:23 BP 146 / 84; dr5 17:18 Body Mass Index 33.91 (113.40 kg, 182.88 cm) hb 17:18 Pain Scale: Adult hb ED Course: 17:12 Patient arrived in ED. im 17:13 Dima Erwin, ALEXANDRA is [facility]. dr5 17:13 Yadiel Perea MD is Attending Physician. dr5 17:18 Xenia Freire, RN is Primary Nurse. db 17:19 Triage completed. hb 17:20 Arm band placed on. hb 17:46 Patient has correct armband on for positive identification. Bed in low position. Call db light in reach. Side rails up X 1. Provided Education on: DISCHARGE. Pulse ox on. NIBP on. Pillow given. 17:46 No provider procedures requiring assistance completed. Patient did not have IV access db during this emergency room visit. Administered Medications: No medications were administered Medication: 17:46 VIS not applicable for this client. db Outcome: 17:20 Discharge ordered by . dr5 17:46 Discharged to home ambulatory, db 17:46 Condition: stable 17:46 Discharge instructions given to patient, Instructed on discharge instructions, follow up and referral plans. Prescriptions given X 1, 17:47 Patient left the ED. db Signatures: Amanda Etienne RN JOSELITO Xenia Freire, RN RN db Grace Smith Dima Erwin FNP-C [employer] PERFORMANCE ENGINEER-Cdr5
--- NOTE | 2024-07-11 17:20 | EDPHYS ---
Physician Documentation [facility] Name: Estevan Larsen III Age: 33 yrs Sex: Male : 1990 Arrival Date: 07/11/2024 Time: 17:10 Bed 19 Private MD: ED Physician Yadiel Perea HPI: 07/11 17:17 This 33 yrs old Black Male presents to ER via Ambulatory with complaints of Toothache. dr5 17:17 The patient presents with broken tooth/teeth, pain, swelling. Onset: The dr5 symptoms/episode began/occurred 2 week(s) ago. Duration: The symptoms are chronic. Associated signs and symptoms: Pertinent positives: pain, redness in area, swelling. Pt coming in with swelling of right face and dental abscess formation. Historical: - Allergies: 17:19 No Known Allergies; hb - Home Meds: 17:19 None [Active]; hb - PMHx: 17:19 Hypertension; hb - PSHx: 17:19 None; hb - Immunization history:: Adult Immunizations up to date. - Infectious Disease History:: Denies. - Social history:: Smoking status: Patient reports the use of cigarette tobacco products, smokes one pack cigarettes per day. ROS: 17:17 Constitutional: as per hpi dr5 Exam: 17:17 Constitutional: This is a well developed, well nourished patient who is awake, alert, dr5 and in no acute distress. Head/Face: Normocephalic, atraumatic. Eyes: Pupils equal round and reactive to light, extra-ocular motions intact. Lids and lashes normal. Conjunctiva and sclera are non-icteric and not injected. Cornea within normal limits. Periorbital areas with no swelling, redness, or edema. Neck: Trachea midline, no thyromegaly or masses palpated, and no cervical lymphadenopathy. Supple, full range of motion without nuchal rigidity, or vertebral point tenderness. No Meningismus. Cardiovascular: Regular rate and rhythm with a normal S1 and S2. Normal PMI, no JVD. No pulse deficits. Respiratory: Lungs have equal breath sounds bilaterally, clear to auscultation. No rales, rhonchi or wheezes noted. No increased work of breathing, no retractions or nasal flaring. Skin: Warm, dry with normal turgor. Normal color with no rashes, no lesions, and no evidence of cellulitis. MS/ Extremity: Pulses equal, no cyanosis. Neurovascular intact. Full, normal range of motion. 17:17 ENT: Mouth: Gums: reddened, swollen, on the right buccal mucosa, upper right second molar, upper right first molar, upper right second bicuspid and upper right first bicuspid, 18:18 ECG was reviewed by the Attending Physician. rt Vital Signs: 17:18 BP 146 / ???; Pulse 82; Resp 72; Temp 98.2(O); Pulse Ox 98% on R/A; Weight 113.4 kg; hb Height 6 ft. 0 in. ; Pain 6/10; 17:23 BP 146 / 84; dr5 17:18 Body Mass Index 33.91 (113.40 kg, 182.88 cm) hb 17:18 Pain Scale: Adult hb MDM: 17:19 Patient medically screened. dr5 17:20 Differential diagnosis: dental caries, dental abscess, aphthous ulcers. Data reviewed: dr5 vital signs, nurses notes. Consideration of Admission/Observation Escalation of care including admission/observation considered. Considered admission and CT for severe facial swelling with fever / tachycardia.. I considered the following discharge prescriptions or medication management in the emergency department. Test considered but Not performed: CT: CT not performed given no facial swelling or tenderness to palpation. No trismus.. Care significantly affected by the following chronic conditions: Hypertension. Care significantly affected by the following Social Determinants of Health: Poor access to healthcare and/or lack of insurance, Poor access to transportation, Problems related to employment. Counseling: I had a detailed discussion with the patient and/or guardian regarding the historical points, exam findings, and any diagnostic results supporting the discharge/admit diagnosis, the presence of at least one elevated blood pressure reading (>120/80) during this emergency department visit, the need for outpatient follow up, for definitive care, a dentist, to return to the emergency department if symptoms worsen or persist or if there are any questions or concerns that arise at home. ED course: Will give Augmentin for developing dental abscess. Recommended patient find low cost dental clinic. Pt has plan to see dentist.. EC:18 Rate is 79 beats/min. Rhythm is regular, Normal Sinus Rhythm with No ectopy. QRS Reese rt is Normal. [place] interval is normal. QRS interval is normal. QT interval is normal. No Q waves. T waves are Normal. No ST changes noted. Interpreted by me. Administered Medications: No medications were administered Disposition: 18:18 Co-signature as Attending Physician, Yadiel Perea MD I reviewed the patient's care rt provided by the Advanced Practice Provider and agree with the diagnosis and treatment plan. Disposition Summary: 07/11/24 17:20 Discharge Ordered Notes: Location: Home dr5 Condition: Stable dr5 Diagnosis - Dental caries, unspecified dr5 - Cracked tooth dr5 Followup: dr5 - With: Emergency Department - When: As needed - Reason: Worsening of condition Followup: dr5 - With: Private Physician - When: 2 - 3 days - Reason: Recheck today's complaints, Continuance of care, Re-evaluation by your physician Discharge Instructions: - Discharge Summary Sheet dr5 - Dental Caries, Adult dr5 - Dental Pain, [id number] dr5 Forms: - Medication Reconciliation Form dr5 - Antibiotic Education dr5 - Patient Portal Instructions dr5 - Leadership Thank You Letter dr5 Prescriptions: - Augmentin 875-125 mg Oral Tablet - take 1 tablet ORAL route every 12 hours for 10 days; 20 tablet; Refills: 0, dr5 Product Selection Permitted Signatures: Amanda Etienne, RN RN Yadiel Perea MD MD rt Dima Erwin, INHALATION THERAPIST-C INHALATION THERAPIST-Cdr5
[2024-07-11 17:56] VITALS: BP 146/84; TEMP 98.2; O2SAT 98
== END 2024-07-11 17:47 | disposition home or self-care (01) ==
LOC: ER 17:10
DX: K02.9 Dental caries, unspecified (principal); S02.5XXA Fracture of tooth (traumatic), initial encounter for closed fracture
CPT/HCPCS: 99283

== ENCOUNTER 2024-09-18 16:20 | Emergency (ER) | payer OTHER ==
--- OUTSIDE RECORDS SUMMARY | 2024-09-18 16:23 | XMS REPORT | Continuity of Care Document ---
Author Name Unknown Address [address] [place] [address] thconnect Address [address] [place] [address] Care Team Providers Care Game Moderator Name Role Phone Unavailable Unavailable Unavailable
--- NOTE | 2024-09-18 16:36 | ER ---
Nurse's Notes [facility] Name: Estevan Larsen III Age: 33 yrs Sex: Male : 1990 Arrival Date: 09/18/2024 Time: 16:20 Bed IW1 Private MD: Diagnosis: Dental abscess Presentation: 09/18 16:34 Chief complaint: Patient states: toothache on right upper. Coronavirus screen: At this ko1 time, the client does not indicate any symptoms associated with coronavirus-19. Ebola Screen: No symptoms or risks identified at this time. Initial Sepsis Screen: Does the patient meet any 2 criteria? No. Patient's initial sepsis screen is negative. Does the patient have a suspected source of infection? No. Patient's initial sepsis screen is negative. Risk Assessment: Do you want to hurt yourself or someone else? Patient reports no desire to harm self or others. Onset of symptoms is unknown. 16:34 Method Of Arrival: Ambulatory ko1 16:34 Acuity: MAYNOR 5 ko1 Triage Assessment: 16:36 General: Appears in no apparent distress. Behavior is calm, cooperative, appropriate ko1 for age. Pain: Complains of pain in gums. EENT: Reports pain in upper right first bicuspid and upper right cuspid. Historical: - Allergies: 16:36 No Known Allergies; ko1 - Home Meds: 16:36 None [Active]; ko1 - PMHx: 16:36 Hypertension; ko1 - PSHx: 16:36 None; ko1 - Immunization history:: Adult Immunizations up to date. - Infectious Disease History:: Denies. - Social history:: Smoking status: Patient denies any tobacco usage or history of. Screenin:40 [facility] ED Fall Risk Assessment (Adult) History of falling in the last 3 months, ko1 including since admission No falls in past 3 months (0 pts) Confusion or Disorientation No (0 pts) Intoxicated or Sedated No (0 pts) Impaired Gait No (0 pts) Mobility Assist Device Used No (0 pt) Altered Elimination No (0 pt) Score/Fall Risk Level 0 - 2 = Low Risk Oriented to surroundings, Maintained a safe environment, Educated pt \T\ family on fall prevention, incl call for assistance when getting out of bed. Abuse screen: Denies threats or abuse. Denies injuries from another. Nutritional screening: No deficits noted. Tuberculosis screening: No symptoms or risk factors identified. Vital Signs: 16:34 BP 131 / 82; Pulse 79; Resp 16; Temp 98.3; Pulse Ox 100% on R/A; ko1 ED Course: 16:24 Patient arrived in ED. im 16:25 Rad[facility]-C [facility] kb 16:25 Cash Woodson MD is Attending Physician. kb 16:36 Triage completed. ko1 16:36 Arm band placed on right wrist. Patient placed in waiting room, Patient notified of ko1 wait time. 16:40 Patient has correct armband on for positive identification. Provided Education on: meds.ko1 16:40 No provider procedures requiring assistance completed. Patient did not have IV access ko1 during this emergency room visit. Administered Medications: No medications were administered Medication: 16:40 VIS not applicable for this client. ko1 Outcome: 16:36 Discharge ordered by . kb 16:40 Discharged to home ambulatory, ko1 16:40 Condition: stable 16:40 Discharge instructions given to patient, Instructed on discharge instructions, follow up and referral plans. medication usage, Demonstrated understanding of instructions, follow-up care, medications, Prescriptions given X 1, 16:41 Patient left the ED. ko1 Signatures: Radha Yip FNP-C FNP-Ckb Oliver, Kathy, RN RN ko1 Grace Smith im
--- NOTE | 2024-09-18 16:36 | EDPHYS ---
Physician Documentation [facility] Name: Estevan Larsen III Age: 33 yrs Sex: Male : 1990 Arrival Date: 09/18/2024 Time: 16:20 Bed IW1 Private MD: ED Physician Cash Woodson HPI: 09/18 16:41 This 33 yrs old Black Male presents to ER via Ambulatory with complaints of Toothache. kb 16:41 Pt is a 33 year old male who presents for pain and swelling to gums that started one kb week ago. States he has had an abscess in the same spot before and knows he needs to see a dentist. Denies fever. . Historical: - Allergies: 16:36 No Known Allergies; ko1 - Home Meds: 16:36 None [Active]; ko1 - PMHx: 16:36 Hypertension; ko1 - PSHx: 16:36 None; ko1 - Immunization history:: Adult Immunizations up to date. - Infectious Disease History:: Denies. - Social history:: Smoking status: Patient denies any tobacco usage or history of. ROS: 16:37 Constitutional: As per HPI kb Exam: 16:37 Constitutional: This is a well developed, well nourished patient who is awake, alert, kb and in no acute distress. Head/Face: Normocephalic, atraumatic. Cardiovascular: Regular rate Respiratory: Respirations even and unlabored. No increased work of breathing. Talking in full sentences Skin: Warm, dry with normal turgor. Normal color. MS/ Extremity: Pulses equal, no cyanosis. Neurovascular intact. Full, normal range of motion. Neuro: Awake and alert, GCS 15, oriented to person, place, time, and situation. 16:37 ENT: Dental exam: gum swelling, pain, Vital Signs: 16:34 BP 131 / 82; Pulse 79; Resp 16; Temp 98.3; Pulse Ox 100% on R/A; ko1 MDM: 16:25 Medical Screening Exam initiated kb 16:37 Differential diagnosis: dental caries, gingivitis, dental abscess, pericoronitis. Data kb reviewed: vital signs, nurses notes. Test considered but Not performed: Labs: cbc, cmp considered but pt is nontoxic in appearance, afebrile, tolerating po intake. CT: ct maxilofacial considered but no facial swelling, no trismus. Counseling: I had a detailed discussion with the patient and/or guardian regarding the historical points, exam findings, and any diagnostic results supporting the discharge/admit diagnosis, the need for outpatient follow up, a dentist, to return to the emergency department if symptoms worsen or persist or if there are any questions or concerns that arise at home. ED course: Pt states he has had this same infection in the past and is trying to save up money to see a dentist. Will prescribe clindamycin since pt had augmentin for this 2 months ago. Pt reports the augmentin worked towards the end of the course. Administered Medications: No medications were administered Disposition Summary: 09/18/24 16:36 Discharge Ordered Notes: Location: Home kb Condition: Stable kb Diagnosis - Dental abscess kb Followup: kb - With: Emergency Department - When: As needed - Reason: Worsening of condition Followup: kb - With: Private Physician - When: 2 - 3 days - Reason: Recheck today's complaints, Continuance of care, Re-evaluation by your physician Discharge Instructions: - Discharge Summary Sheet kb - Dental Abscess, [id number] kb Forms: - Medication Reconciliation Form kb - Antibiotic Education kb - Prescription Opioid Use kb - Patient Portal Instructions kb - Leadership Thank You Letter kb Prescriptions: - Clindamycin HCl 300 mg Oral Capsule - take 1 capsule ORAL route every 6 hours for 10 days; 40 capsule; Refills: 0, kb Product Selection Permitted Signatures: Radha Yip, FREDIC UNRULY-Hannah Alexis, RN RN ko1
[2024-09-18 17:01] VITALS: BP 131/82; TEMP 98.3; O2SAT 100
== END 2024-09-18 16:41 | disposition home or self-care (01) ==
LOC: ER 16:20
DX: K04.7 Periapical abscess without sinus (principal)
CPT/HCPCS: 99283

== ENCOUNTER 2024-10-30 13:34 | Emergency (ER) | payer OTHER ==
--- OUTSIDE RECORDS SUMMARY | 2024-10-30 13:37 | XMS REPORT | Continuity of Care Document ---
Author Name Unknown Address [address] [place] [address] thconnect Address [address] [place] [address] Care Team Providers Care [employer] Banker Name Role Phone Unavailable Unavailable Unavailable
--- NOTE | 2024-10-30 13:52 | ER ---
Nurse's Notes [facility] Name: Estevan Larsen III Age: 33 yrs Sex: Male : 1990 Arrival Date: 10/30/2024 Time: 13:34 Bed IW3 Private MD: Diagnosis: Dental caries, unspecified Presentation: 10/30 13:48 Chief complaint: Left lower tooth pain and facial swelling x 3 weeks. Coronavirus hb screen: At this time, the client does not indicate any symptoms associated with coronavirus-19. Ebola Screen: No symptoms or risks identified at this time. Initial Sepsis Screen: Does the patient meet any 2 criteria? No. Patient's initial sepsis screen is negative. Does the patient have a suspected source of infection? No. Patient's initial sepsis screen is negative. Risk Assessment: Do you want to hurt yourself or someone else? Patient reports no desire to harm self or others. Onset of symptoms was October 08, 2024. 13:48 Method Of Arrival: Ambulatory hb 13:48 Acuity: MAYNOR 4 hb Historical: - Allergies: 13:49 No Known Allergies; hb - PMHx: 13:49 Hypertension; hb - Immunization history:: Adult Immunizations up to date. - Infectious Disease History:: Denies. - Social history:: Smoking status: Patient denies any tobacco usage or history of. - Family history:: not pertinent. Vital Signs: 13:48 BP 170 / 91; Pulse 76; Resp 16; Temp 97.9; Pulse Ox 100% on R/A; Pain 8/10; hb 13:48 Pain Scale: Adult hb ED Course: 13:37 Patient arrived in ED. mr 13:42 Yadiel Perea MD is Attending Physician. rt 13:49 Triage completed. hb 13:50 Arm band placed on. hb Administered Medications: No medications were administered Outcome: 13:51 Discharge ordered by MD. rt 13:55 Patient left the ED. hb Signatures: Nicole Ray, Roly Reg Amanda Lewis, RN RN Yadiel Husain MD MD rt
--- NOTE | 2024-10-30 13:52 | EDPHYS ---
Physician Documentation [facility] Name: Estevan Larsen III Age: 33 yrs Sex: Male : 1990 Arrival Date: 10/30/2024 Time: 13:34 Bed IW3 Private MD: ED Physician Yadiel Perea HPI: 10/30 15:53 This 33 yrs old Black Male presents to ER via Ambulatory with complaints of Abscess rt tooth, Facial Swelling. 15:53 Patient presents to the ED with 3 days of a right lower dental abscess. Has had rt multiple dental abscesses in the past improved with clindamycin. He is saving up money to get in with a dentist. Patient denies difficulty swallowing, acute complaints, symptoms are moderate severity, no other aggravating alleviating factors.. Historical: - Allergies: 13:49 No Known Allergies; hb - PMHx: 13:49 Hypertension; hb - Immunization history:: Adult Immunizations up to date. - Infectious Disease History:: Denies. - Social history:: Smoking status: Patient denies any tobacco usage or history of. - Family history:: not pertinent. ROS: 15:53 Constitutional: Negative for fever, chills, and weight loss, Cardiovascular: Negative rt for chest pain, palpitations, and edema, Respiratory: Negative for shortness of breath, cough, wheezing, and pleuritic chest pain, Abdomen/GI: Negative for abdominal pain, nausea, vomiting, diarrhea, and constipation, Skin: Negative for injury, rash, and discoloration, Neuro: Negative for headache, weakness, numbness, tingling, and seizure, 15:53 ENT: Positive for Dental pain, facial swelling, Exam: 16:35 Constitutional: This is a well developed, well nourished patient who is awake, alert, rt and in no acute distress. Chest/axilla: Normal chest wall appearance and motion. Nontender with no deformity. No lesions are appreciated. Cardiovascular: Regular rate and rhythm with a normal S1 and S2. No gallops, murmurs, or rubs. Normal PMI, no JVD. No pulse deficits. Respiratory: Lungs have equal breath sounds bilaterally, clear to auscultation and percussion. No rales, rhonchi or wheezes noted. No increased work of breathing, no retractions or nasal flaring. Abdomen/GI: Soft, non-tender, with normal bowel sounds. No distension or tympany. No guarding or rebound. No evidence of tenderness throughout. Skin: Warm, dry with normal turgor. Normal color with no rashes, no lesions, and no evidence of cellulitis. 16:35 ENT: Multiple dental caries noted, minimal facial swelling, no drainable abscess. Vital Signs: 13:48 BP 170 / 91; Pulse 76; Resp 16; Temp 97.9; Pulse Ox 100% on R/A; Pain 8/10; hb 13:48 Pain Scale: Adult hb MDM: 13:48 Medical Screening Exam initiated rt 16:35 Differential Diagnosis Dental caries, odontogenic abscess. Data reviewed: vital signs, rt nurses notes. Test considered but Not performed: Other Details Stable vital signs, no signs of drainable abscess, labs, CT scan are not indicated. Care significantly affected by the following chronic conditions: Hypertension. Counseling: I had a detailed discussion with the patient and/or guardian regarding the historical points, exam findings, and any diagnostic results supporting the discharge/admit diagnosis, the need for outpatient follow up, to return to the emergency department if symptoms worsen or persist or if there are any questions or concerns that arise at home. Administered Medications: No medications were administered Disposition Summary: 10/30/24 13:51 Discharge Ordered Notes: Location: Home rt Problem: new rt Symptoms: are unchanged rt Condition: Stable rt Diagnosis - Dental caries, unspecified rt Followup: rt - With: Private Physician - When: 2 - 3 days - Reason: Discharge Instructions: - Discharge Summary Sheet rt - Dental Caries, Adult rt Forms: - Medication Reconciliation Form rt - Antibiotic Education rt - Prescription Opioid Use rt - Patient Portal Instructions rt - Leadership Thank You Letter rt Prescriptions: - Clindamycin HCl 300 mg Oral Capsule - take 1 capsule ORAL route every 6 hours for 10 days; 40 capsule; Refills: 0, rt Product Selection Permitted Signatures: Amanda Etienne RN RN Yadiel Husain MD MD rt
[2024-10-30 15:51] VITALS: BP 170/91; TEMP 97.9; O2SAT 100
== END 2024-10-30 13:55 | disposition home or self-care (01) ==
LOC: ER 13:34
DX: K02.9 Dental caries, unspecified (principal)
CPT/HCPCS: 99281

== ENCOUNTER 2024-11-15 14:20 | Emergency (ER) | payer OTHER ==
--- OUTSIDE RECORDS SUMMARY | 2024-11-15 14:22 | XMS REPORT | Continuity of Care Document ---
Author Name Unknown Address [address] [place] [address] thconnect Address [address] [place] [address] Care Team Providers Care Generating Station Mechanic Name Role Phone Unavailable Unavailable Unavailable
--- NOTE | 2024-11-15 15:13 | ER ---
Nurse's Notes [facility] Name: Estevan Larsen III Age: 34 yrs Sex: Male : 1990 Arrival Date: 11/15/2024 Time: 14:20 Bed IW3 Private MD: Diagnosis: Periapical abscess without sinus Presentation: 11/15 15:04 Chief complaint: Patient states: dental abscess x 3 weeks. Coronavirus screen: Client ss denies travel out of the [place] in the last 14 days. Ebola Screen: Patient denies exposure to infectious person. Patient denies travel to an Ebola-affected area in the 21 days before illness onset. Initial Sepsis Screen: Does the patient meet any 2 criteria? No. Patient's initial sepsis screen is negative. Does the patient have a suspected source of infection? No. Patient's initial sepsis screen is negative. Risk Assessment: Do you want to hurt yourself or someone else? Patient reports no desire to harm self or others. Onset of symptoms was October 2024. 15:04 Method Of Arrival: Ambulatory ss 15:04 Acuity: MAYNOR 4 ss Historical: - Allergies: 15:06 No Known Allergies; ss - Home Meds: 15:06 None [Active]; ss - PMHx: 15:06 Hypertension; ss - Immunization history:: Client reports receiving the 2nd dose of the Covid vaccine. - Infectious Disease History:: Denies. - Social history:: Smoking status: Patient reports the use of cigarette tobacco products, smokes one-half pack cigarettes per day. Screenin:19 Abuse screen: Denies threats or abuse. Denies injuries from another. Nutritional ss screening: No deficits noted. Tuberculosis screening: Never had TB. Assessment: 15:19 General: Appears in no apparent distress. comfortable, Behavior is calm, cooperative. ss Pain: Complains of pain in L lower jaw Pain currently is 7 out of 10 on a pain scale. Quality of pain is described as aching, tender. Neuro: Level of Consciousness is awake, alert, obeys commands, Oriented to person, place, time, situation. Respiratory: Airway is patent Respiratory effort is even, unlabored, Respiratory pattern is regular, symmetrical. EENT: Oral mucosa is moist. Derm: Skin is intact, is healthy with good turgor, Skin is pink, warm \T\ dry. normal. Vital Signs: 15:04 BP 145 / 86; Pulse 87; Resp 16; Temp 97.8(TE); Pulse Ox 100% on R/A; Weight 113.4 kg; ss Height 6 ft. 0 in. ; Pain 7/10; 15:04 Body Mass Index 33.91 (113.40 kg, 182.88 cm) ss 15:04 Pain Scale: Adult ss ED Course: 14:24 Patient arrived in ED. ra3 14:25 Anjelica Hern[facility]dez [facility]. sb4 14:25 Gordon Kelly MD is Attending Physician. sb4 15:06 Triage completed. ss 15:06 Arm band placed on right wrist. ss 15:19 Myrna Costa RN is Primary Nurse. ss 15:19 Patient has correct armband on for positive identification. ss 15:19 No provider procedures requiring assistance completed. Patient did not have IV access ss during this emergency room visit. Administered Medications: No medications were administered Medication: 15:19 VIS not applicable for this client. ss Outcome: 15:12 Discharge ordered by . sb4 15:19 Discharged to home ambulatory, ss 15:19 Condition: good 15:19 Discharge instructions given to patient, family, Instructed on discharge instructions, follow up and referral plans. medication usage, Demonstrated understanding of instructions, follow-up care, medications, Prescriptions given X 2, 15:21 Patient left the ED. ss Signatures: Myrna Costa RN RN Anjelica Hernández PA-C PA-C sb4 Melissa Quach ra3 Corrections: (The following items were deleted from the chart) 15:07 15:04 BP 145 / 86; Pulse 7bpm; Resp 16bpm; Pulse Ox 100% RA; Temp 97.8F Temporal; 113.4 ss kg; Height 6 ft. 0 in.; BMI: 33.9; Pain 7/10, Adult; ss
--- NOTE | 2024-11-15 15:13 | EDPHYS ---
Physician Documentation [facility] Name: Estevan Larsen III Age: 34 yrs Sex: Male : 1990 Arrival Date: 11/15/2024 Time: 14:20 Bed IW3 Private MD: ED Physician Gordon Kelly HPI: 11/15 17:17 This 34 yrs old Black Male presents to ER via Ambulatory with complaints of Dental sb4 abscess. 17:17 The patient presents with pain, swelling. The problem is located in the lower left sb4 first bicuspid. Onset: The symptoms/episode began/occurred 3 week(s) ago. diagnosed with possible dental abscess a few weeks ago here, was started on clindamycin. states it was helping at first but then got worse. he did follow up with the dentist who recommended a lot of work that was too expensive for him. presents today with continued pain in the region of the abscess. does smoke cigarettes daily. Historical: - Allergies: 15:06 No Known Allergies; ss - Home Meds: 15:06 None [Active]; ss - PMHx: 15:06 Hypertension; ss - Immunization history:: Client reports receiving the 2nd dose of the Covid vaccine. - Infectious Disease History:: Denies. - Social history:: Smoking status: Patient reports the use of cigarette tobacco products, smokes one-half pack cigarettes per day. ROS: 17:17 Constitutional: Negative for fever, chills, and weight loss, sb4 17:17 ENT: Positive for dental pain, 17:17 All other systems are negative, Exam: 17:17 Constitutional: This is a well developed, well nourished patient who is awake, alert, sb4 and in no acute distress. Head/Face: Normocephalic, atraumatic. Eyes: Extra-ocular motions intact. Periorbital areas with no swelling, redness, or edema. Respiratory: No increased work of breathing, no retractions or nasal flaring. Skin: Warm, dry with normal turgor. Normal color with no rashes, no lesions, and no evidence of cellulitis. 17:17 ENT: Dental exam: abscess, that is mild, specifically in the lower left first bicuspid, dental caries, that is mild, diffusely, gum swelling, pain, Vital Signs: 15:04 BP 145 / 86; Pulse 87; Resp 16; Temp 97.8(TE); Pulse Ox 100% on R/A; Weight 113.4 kg; ss Height 6 ft. 0 in. ; Pain 7/10; 15:04 Body Mass Index 33.91 (113.40 kg, 182.88 cm) 15:04 Pain Scale: Adult ss MDM: 14:27 Medical Screening Exam initiated sb4 17:17 Data reviewed: vital signs, nurses notes, and as a result, I will discharge patient. sb4 Counseling: I had a detailed discussion with the patient and/or guardian regarding the historical points, exam findings, and any diagnostic results supporting the discharge/admit diagnosis, the need for outpatient follow up, a dentist, to return to the emergency department if symptoms worsen or persist or if there are any questions or concerns that arise at home, smoking cessation. Administered Medications: No medications were administered Disposition: 11/16 09:05 Co-signature as Attending Physician, Gordon Kelly MD I reviewed the patient's care rn provided by the Advanced Practice Provider and agree with the diagnosis and treatment plan. Disposition Summary: 11/15/24 15:12 Discharge Ordered Notes: Location: Home sb4 Problem: an ongoing problem sb4 Symptoms: have improved sb4 Condition: Stable sb4 Diagnosis - Periapical abscess without sinus sb4 Followup: sb4 - With: Emergency Department - When: As needed - Reason: Fever > 102 F, Worsening of condition Discharge Instructions: - Discharge Summary Sheet sb4 - Dental Abscess, Turi-yx-Lfwy sb4 Forms: - Antibiotic Education sb4 - Patient Portal Instructions sb4 - Leadership Thank You Letter sb4 Prescriptions: - Peridex 0.12 % Mucous Membrane Mouthwash - swish 15 milliliter BUCCAL route 2 times per day; 120 milliliter; Refills: 0, sb4 Product Selection Permitted - Amoxicillin 875 mg Oral Tablet - take 1 tablet ORAL route every 12 hours for 10 days; 20 tablet; Refills: 0, sb4 Product Selection Permitted Signatures: Gordon Kelly MD MD rn Blanchard, Shelby, RN RN ss Brown, Sophia, PA-C PA-C sb4
[2024-11-15 15:27] VITALS: BP 145/86; TEMP 97.8; O2SAT 100
== END 2024-11-15 15:21 | disposition home or self-care (01) ==
LOC: ER 14:20
DX: K04.7 Periapical abscess without sinus (principal); F17.210 Nicotine dependence, cigarettes, uncomplicated
CPT/HCPCS: 99283

== ENCOUNTER 2024-12-13 16:52 | Emergency (ER) | payer OTHER ==
--- OUTSIDE RECORDS SUMMARY | 2024-12-13 16:55 | XMS REPORT | Continuity of Care Document ---
Author Name Unknown Address [address] [place] [id number] [facility] Address [address] [place] [address]. [address] [place] [address] Care Team Providers Care Pricing Intern Name Role Phone Unavailable Unavailable Unavailable
[2024-12-13] MEDS ORDERED: NA CHLORIDE 0.9% 0 ML ONE (17:37)
[2024-12-13 17:40] LABS: Absolute Eosinophils 0.1 K/uL (0-0.5); Absolute Lymphocytes (CBC) 1.4 K/uL (0.7-4.9); Absolute Monocytes 0.9 K/uL (0.1-1.3); Absolute Neutrophil 11.8 K/uL (1.8-8.0); Basophils % 0.3 % (0-1.3); Eosinophils % 0.5 % (0-4.4); Hematocrit 45.6 % (39.6-49.0); Hemoglobin 15.2 g/dL (13.6-17.9); Lymphocytes % 9.9 % (15.3-44.8); MCH 27.6 pg (27.0-35.0); MCHC 33.4 g/dL (32.0-36.0); MCV 82.8 fL (80-100); MPV 8.3 fL (7.6-11.3); Monocytes % 6.1 % (3.3-12.3); Neutrophils % 83.2 % (41.7-73.7); Nucleated Red Blood Cells % 0.2 % (0-0); Platelets 299 thou/uL (152-406); RBC Red Blood Cell Count 5.51 M/uL (4.33-5.43); Red Cell Distribution Width 13.1 % (12.1-15.2)
[2024-12-13] MEDS ORDERED: NA CHLORIDE 0.9% 1,000 ML ONE (17:40)
--- NOTE | 2024-12-13 17:45 | RAD REPORT ---
Procedure: Chest Single View HISTORY: Chest pain COMPARISON: 2018 FINDINGS: The lungs appear clear of acute infiltrate. No significant pleural effusion noted. The heart is normal size. IMPRESSION: No acute abnormality is displayed.
[2024-12-13 17:57] LABS: Influenza A Ag Negative; Influenza B Ag Negative; SARS-CoV-2 Antigen Rapid Res Negative (Negative)
[2024-12-13 18:04] LABS: ALT/SGPT 25 U/L (16-61); AST/SGOT 18 U/L (15-37); Albumin 3.6 g/dL (3.4-5.0); Alkaline Phosphatase 63 U/L (45-117); Anion Gap 10.4 mEq/L (5.0-15.0); BUN Blood Urea Nitrogen 15 mg/dL (7-18); Bicarbonate 24 mEq/L (21-32); Bilirubin Total 0.4 mg/dL (0.2-1.0); Globulin 3.7 g/dL (2.3-3.5); Glomerular Filtration Rate 113 ml/min (=/>90); Glucose Level 97 mg/dL (74-106); Magnesium 1.9 mg/dL (1.6-2.4); NT PRO-BNP 9 pg/mL (<125); Potassium 3.4 mEq/L (3.5-5.1); Protein, Total 7.3 g/dL (6.4-8.2); Sodium Level 135 mEq/L (136-145); Troponin High Sensitivity 4.7 pg/mL (<58.9)
[2024-12-13 18:14] LABS: Bilirubin Direct < 0.2 mg/dL (0-0.2); Bilirubin Indirect, Calculated 0.2 mg/dL (0.2-0.8)
--- NOTE | 2024-12-13 18:43 | ER ---
Nurse's Notes [facility] Name: Estevan Larsen III Age: 34 yrs Sex: Male : 1990 Arrival Date: 12/13/2024 Time: 16:52 Bed 25 Private MD: Diagnosis: Elevated blood-pressure reading, without diagnosis of hypertension Presentation: 12/13 17:01 Chief complaint: Patient states: DIZZINESS AND LIGHTHEADED STARTED [place]. STATES BP WAS 149/100 TOOK 1 BABY ASPIRIN. STILL FEELING DIZZY AND A WEAK AND COMPLAINS OF NAUSEA. Coronavirus screen: Client denies travel out of the [place] in the last 14 days. At this time, the client does not indicate any symptoms associated with coronavirus-19. Ebola Screen: Patient negative for fever greater than or equal to 101.5 degrees Fahrenheit, and additional compatible Ebola Virus Disease symptoms Patient denies exposure to infectious person. Patient denies travel to an Ebola-affected area in the 21 days before illness onset. No symptoms or risks identified at this time. Initial Sepsis Screen: Does the patient meet any 2 criteria? No. Patient's initial sepsis screen is negative. Does the patient have a suspected source of infection? No. Patient's initial sepsis screen is negative. Risk Assessment: Do you want to hurt yourself or someone else? Patient reports no desire to harm self or others. Onset of symptoms was December 13, 2024. 17:01 Acuity: MAYNOR 3 db 17:01 Method Of Arrival: Ambulatory db Triage Assessment: 17:03 General: Appears in no apparent distress. uncomfortable, Behavior is calm, cooperative. db Pain: Denies pain. Neuro: Level of Consciousness is awake, alert, obeys commands, Oriented to person, place, time, situation, Reports dizziness, weakness. Respiratory: Airway is patent Respiratory effort is even, unlabored, Respiratory pattern is. Historical: - Allergies: 17:03 No Known Allergies; db - Home Meds: 17:03 None [Active]; db - PMHx: 17:03 Hypertension; db - PSHx: 17:03 None; db - Immunization history:: Adult Immunizations unknown. - Infectious Disease History:: Denies. - Social history:: Smoking status: Patient reports the use of cigarette tobacco products, smokes one-half pack cigarettes per day. Screenin:10 [facility] ED Fall Risk Assessment (Adult) History of falling in the last 3 months, jb4 including since admission No falls in past 3 months (0 pts) Confusion or Disorientation No (0 pts) Intoxicated or Sedated No (0 pts) Impaired Gait No (0 pts) Mobility Assist Device Used No (0 pt) Altered Elimination No (0 pt) Score/Fall Risk Level 0 - 2 = Low Risk Oriented to surroundings, Maintained a safe environment. Abuse screen: Denies threats or abuse. Nutritional screening: No deficits noted. Tuberculosis screening: No symptoms or risk factors identified. Assessment: 17:10 General: Appears in no apparent distress. comfortable, Behavior is calm, cooperative, jb4 appropriate for age. Pain: Denies pain. Neuro: Level of Consciousness is awake, alert, obeys commands, Oriented to person, place, time, situation. Cardiovascular: Patient's skin is warm and dry. Respiratory: Airway is patent Respiratory effort is even, unlabored, Respiratory pattern is regular, symmetrical. Derm: Skin is intact, Skin is dry, Skin is normal, Skin temperature is warm. Musculoskeletal: Circulation, motion, and sensation intact. Range of motion: intact in all extremities. 18:00 Reassessment: Patient appears in no apparent distress at this time. Patient and/or jb4 family updated on plan of care and expected duration. Pain level reassessed. Patient is alert, oriented x 3, equal unlabored respirations, skin warm/dry/pink. 19:04 Reassessment: Patient appears in no apparent distress at this time. Patient and/or jb4 family updated on plan of care and expected duration. Pain level reassessed. Patient is alert, oriented x 3, equal unlabored respirations, skin warm/dry/pink. Patient states feeling better. Vital Signs: 17:01 BP 139 / 75; Pulse 78; Resp 16; Temp 98; Pulse Ox 96% ; Weight 115.67 kg; Height 5 ft. db 11 in. ; 18:00 BP 126 / 80; Pulse 66; Resp 16; Pulse Ox 96% on R/A; jb4 19:00 BP 131 / 68; Pulse 73; Resp 16; Pulse Ox 97% on R/A; jb4 17:01 Body Mass Index 35.56 (115.67 kg, 180.34 cm) db ED Course: 16:54 Patient arrived in ED. im 17:00 Anjelica Hernández PA-C is PHCP. sb4 17:00 Cash Woodson MD is Attending Physician. sb4 17:02 Triage completed. db 17:03 Arm band placed on Patient placed in an exam room. db 17:10 Patient has correct armband on for positive identification. Placed in gown. Bed in low jb4 position. Call light in reach. Side rails up X 1. Provided Education on: plan of care. Client placed on continuous cardiac and pulse oximetry monitoring. NIBP monitoring applied. telephone services sales representative on. Pulse ox on. 17:33 Inserted saline lock: 20 gauge in left forearm, using aseptic technique. Blood jb4 collected. 17:41 XRAY Chest (1 view) In Process Unspecified. EDMS 17:41 Troponin HS Sent. jb4 17:41 NT PRO-BNP Sent. jb4 17:41 Magnesium Sent. jb4 17:41 LFT's Sent. jb4 17:41 CBC with Diff Sent. jb4 17:41 Basic Metabolic Panel Sent. jb4 17:41 COVID-19 Ag + Flu A+B Ag Sent. jb4 18:43 Ariadne King DO is Referral Physician. sb4 19:04 Omar Schreiber, RN is Primary Nurse. jb4 19:07 No provider procedures requiring assistance completed. IV discontinued, intact, jb4 bleeding controlled, No redness/swelling at site. Pressure dressing applied. Administered Medications: 17:41 Drug: NS 0.9% IV 1000 ml IV at 1 bolus Per protocol; to be given as a bolus over 60 jb4 minutes Route: IV; Rate: 1 bolus; Site: left forearm; 18:45 Follow up: Response: No adverse reaction; IV Status: Completed infusion; IV Intake: jb4 1000ml Medication: 19:00 VIS not applicable for this client. jb4 Intake: 18:45 IV: 1000ml; Total: 1000ml. jb4 Outcome: 18:43 Discharge ordered by . sb4 19:07 Discharged to home ambulatory, jb4 19:07 Condition: stable 19:07 Discharge instructions given to patient, Instructed on discharge instructions, follow up and referral plans. Demonstrated understanding of instructions, follow-up care, 19:07 Patient left the ED. jb4 Signatures: Dispatcher [employer] EDOmar Gar, RN RN jb4 Xenia Freire, RN RN Anjelica Carrillo PAReginoC PA-C sb4 Grace Smith Corrections: (The following items were deleted from the chart) 17:05 17:01 Method Of Arrival: Ambulatory db db 18:16 17:41 THYROID STIMULAT HORMONE+C.LAB.BRZ drawn and sent. jb4 EDMS
--- NOTE | 2024-12-13 18:43 | EDPHYS ---
Physician Documentation [facility] Name: Estevan Larsen III Age: 34 yrs Sex: Male : 1990 Arrival Date: 12/13/2024 Time: 16:52 Bed 25 Private MD: ED Physician Cash Woodson HPI: 12/13 17:13 This 34 yrs old Black Male presents to ER via Ambulatory with complaints of Dizziness, sb4 High Blood Pressure. 17:13 Patient states that he was at his child's birthday alliance party this afternoon when he started sb4 to feel dizzy, weak, and nauseated. He got in his car to try and cool off, checked his blood pressure and it was 149/100. He denies any history of hypertension. Is not on any daily medications. States that he took 1 baby aspirin but is still feeling the same symptoms. He denies any chest pain or shortness of breath. Historical: - Allergies: 17:03 No Known Allergies; db - Home Meds: 17:03 None [Active]; db - PMHx: 17:03 Hypertension; db - PSHx: 17:03 None; db - Immunization history:: Adult Immunizations unknown. - Infectious Disease History:: Denies. - Social history:: Smoking status: Patient reports the use of cigarette tobacco products, smokes one-half pack cigarettes per day. ROS: 17:22 Cardiovascular: Negative for chest pain, palpitations, and edema, sb4 17:22 Abdomen/GI: Positive for nausea, 17:22 Neuro: Positive for dizziness, weakness, 17:22 All other systems are negative, Exam: 17:23 Constitutional: This is a well developed, well nourished patient who is awake, alert, sb4 and in no acute distress. Head/Face: Normocephalic, atraumatic. Eyes: Extra-ocular motions intact. Periorbital areas with no swelling, redness, or edema. ENT: Mucous membranes moist. Cardiovascular: Regular rate and rhythm with a normal S1 and S2. Respiratory: No increased work of breathing, no retractions or nasal flaring. Abdomen/GI: Soft, non-tender, no distension. Skin: Warm, dry with normal turgor. Normal color with no rashes, no lesions, and no evidence of cellulitis. Vital Signs: 17:01 BP 139 / 75; Pulse 78; Resp 16; Temp 98; Pulse Ox 96% ; Weight 115.67 kg; Height 5 ft. db 11 in. ; 18:00 BP 126 / 80; Pulse 66; Resp 16; Pulse Ox 96% on R/A; jb4 19:00 BP 131 / 68; Pulse 73; Resp 16; Pulse Ox 97% on R/A; jb4 17:01 Body Mass Index 35.56 (115.67 kg, 180.34 cm) db MDM: 17:01 Medical Screening Exam initiated sb4 18:35 Data reviewed: vital signs, nurses notes, lab test result(s), EKG, radiologic studies, sb4 and as a result, I will discharge patient. Counseling: I had a detailed discussion with the patient and/or guardian regarding the historical points, exam findings, and any diagnostic results supporting the discharge/admit diagnosis, the presence of at least one elevated blood pressure reading (>120/80) during this emergency department visit, lab results, radiology results, the need for outpatient follow up, for definitive care, to return to the emergency department if symptoms worsen or persist or if there are any questions or concerns that arise at home. 12/13 17:11 Order name: Basic Metabolic Panel; Complete Time: 18:34 sb4 12/13 17:11 Order name: CBC with Diff; Complete Time: 17:44 sb4 12/13 17:11 Order name: LFT's; Complete Time: 18:34 sb4 12/13 17:11 Order name: Magnesium; Complete Time: 18:34 sb4 12/13 17:11 Order name: NT PRO-BNP; Complete Time: 18:34 sb4 12/13 17:11 Order name: Troponin HS; Complete Time: 18:34 sb4 12/13 17:11 Order name: COVID-19 Ag + Flu A+B Ag; Complete Time: 17:58 sb4 12/13 18:17 Order name: Thyroid Stimulating Hormone; Complete Time: 18:34 EDMS 12/13 17:11 Order name: XRAY Chest (1 view); Complete Time: 17:46 sb4 12/13 17:11 Order name: Cardiac monitoring; Complete Time: 17:41 sb4 12/13 17:11 Order name: EKG - Nurse/Tech; Complete Time: 17:41 sb4 12/13 17:11 Order name: IV Saline Lock; Complete Time: 17:41 sb4 03 17:11 Order name: Labs collected and sent; Complete Time: 17:41 sb4 03 17:11 Order name: O2 Per Protocol; Complete Time: 17:18 sb4 03 17:11 Order name: O2 Sat Monitoring; Complete Time: 17:18 sb4 03/ 18:34 Order name: PO challenge; Complete Time: 18:56 sb4 EC:36 Rate is 63 beats/min. Rhythm is regular, Normal Sinus Rhythm. MT interval is normal at sb4 134 msec. QRS interval is normal at 92 msec. QT interval is normal at 386 msec. No Q waves. T waves are Normal. Clinical impression: No evidence of ischemia. Interpreted by me. Reviewed by me. Administered Medications: 17:41 Drug: NS 0.9% IV 1000 ml IV at 1 bolus Per protocol; to be given as a bolus over 60 jb4 minutes Route: IV; Rate: 1 bolus; Site: left forearm; 18:45 Follow up: Response: No adverse reaction; IV Status: Completed infusion; IV Intake: jb4 1000ml Disposition Summary: 12/13/24 18:43 Discharge Ordered Notes: Location: Home sb4 Problem: new sb4 Symptoms: have improved sb4 Condition: Stable sb4 Diagnosis - Elevated blood-pressure reading, without diagnosis of hypertension sb4 Followup: sb4 - With: Ariadne King, - When: 1 week - Reason: Recheck today's complaints, Re-evaluation by your physician Discharge Instructions: - Discharge Summary Sheet sb4 - How to Take Your Blood Pressure, Xcop-rq-Llvo sb4 - Form - Blood Pressure Record Sheet sb4 Forms: - Patient Portal Instructions sb4 - Leadership Thank You Letter sb4 Signatures: Dispatcher [employer] Omar Bowman RN RN jb4 Xenia Freire RN Anjelica Mcintosh PA-C PAKenneth sb4 Corrections: (The following items were deleted from the chart) 17:11 17:11 BASIC METABOLIC PANEL+C.LAB.BRZ ordered. EDMS EDMS 17:11 17:11 CBC+H.LAB.BRZ ordered. EDMS EDMS 17:11 17:11 HEPATIC FUNCTION+C.LAB.BRZ ordered. EDMS EDMS 17:11 17:11 MAGNESIUM+C.LAB.BRZ ordered. EDMS EDMS 17:11 17:11 PROBNP+C.LAB.BRZ ordered. EDMS EDMS 17:11 17:11 Troponin High Sensitivity+C.LAB.BRZ ordered. EDMS EDMS 17:11 17:11 COVID-19 Ag + Flu A+B Ag+I.LAB.BRZ ordered. EDMS EDMS 17:11 17:11 Chest Single View+RAD.RAD.BRZ ordered. EDMS EDMS 18:16 17:22 THYROID STIMULAT HORMONE+C.LAB.BRZ ordered. EDMS EDMS
[2024-12-13 19:31] VITALS: TEMP 98
[2024-12-13 19:33] VITALS: BP 131/68; O2SAT 97
--- NOTE | 2024-12-15 11:04 | EKG ---
Test Date: 2024-12-13 Test Time: 17:27:34 Master Of Ceremonies: MARGI MEASUREMENT RESULTS: Intervals: Rate: 68 MI: 134 QRSD: 92 QT: 386 QTc: 410 Watson: P: 50 MI: 134 QRS: 18 T: 36 INTERPRETIVE STATEMENTS: Normal sinus rhythm Nonspecific ST abnormality Abnormal ECG Compared to ECG 06/18/2015 19:55:01 ST (T wave) deviation now present Right bundle-branch block no longer present Left anterior fascicular block no longer present Bifascicular block no longer present Left ventricular hypertrophy no longer present Early repolarization no longer present Electronically Signed On 12-15-24 10:59:15 CDT by Brent Cespedes
== END 2024-12-13 19:07 | disposition home or self-care (01) ==
LOC: ER 16:52
DX: I10 Essential (primary) hypertension (principal); R53.1 Weakness; R11.0 Nausea; F17.210 Nicotine dependence, cigarettes, uncomplicated; Z11.52 Encounter for screening for COVID-19
CPT/HCPCS: 93005; 85025; 80048; 36415; 83735; 80076; 84443; 84484; 83880; 71045; 96360; 99285; 87428; J7030

== ENCOUNTER 2025-01-25 15:58 | Emergency (ER) | payer OTHER ==
--- OUTSIDE RECORDS SUMMARY | 2025-01-25 16:03 | XMS REPORT | Continuity of Care Document ---
Author Name Unknown Address [address] [place] [address] [place] [address] [address] [place] [address] Care Team Providers Care Road Traffic Controller Name Role Phone Unavailable Unavailable Unavailable
[2025-01-25] MEDS ORDERED: LIDOCAINE 1% MPF 5 ML VIAL ONE (16:13)
[2025-01-25] MEDS ORDERED: TDAP (DIPHTH,PERTUSS(ACELL),TET VAC) 0.5 ML VIAL IMVAC ONE (16:13)
--- NOTE | 2025-01-25 16:33 | ER ---
Nurse's Notes [facility] Name: Estevan Larsen III Age: 34 yrs Sex: Male : 1990 Arrival Date: 01/25/2025 Time: 15:58 Bed 12 Private MD: Diagnosis: Laceration without foreign body of left hand, initial encounter Presentation: 01/25 16:13 Chief complaint: Chief complaint: Patient states: Cut left first web with knife. jl7 16:13 Coronavirus screen: At this time, the client does not indicate any symptoms associated jl7 with coronavirus-19. Ebola Screen: No symptoms or risks identified at this time. Initial Sepsis Screen: Does the patient meet any 2 criteria? No. Patient's initial sepsis screen is negative. Does the patient have a suspected source of infection? No. Patient's initial sepsis screen is negative. Risk Assessment: Do you want to hurt yourself or someone else? Patient reports no desire to harm self or others. Onset of symptoms was January 25, 2025. 16:13 Method Of Arrival: Ambulatory [facility] 16:13 Acuity: MAYNOR 4 jl7 Triage Assessment: 16:15 General: Appears in no apparent distress. uncomfortable, Behavior is calm, cooperative, jl7 appropriate for age. Pain: Complains of pain in Left first web space Pain currently is 1 out of 10 on a pain scale. Musculoskeletal: Range of motion: intact in all extremities. Injury Description: Laceration sustained to Left first web space is 2.6 to 7.5 cm long. Historical: - Allergies: 16:15 No Known Allergies; jl7 - Home Meds: 16:15 None [Active]; jl7 - PMHx: 16:15 Hypertension; jl7 - PSHx: 16:15 None; jl7 - Immunization history:: Adult Immunizations unknown. - Infectious Disease History:: Denies. - Social history:: Smoking status: Patient reports the use of cigarette tobacco products, smokes one-half pack cigarettes per day. Screenin:15 [facility] ED Fall Risk Assessment (Adult) History of falling in the last 3 months, bp including since admission No falls in past 3 months (0 pts) Confusion or Disorientation No (0 pts) Intoxicated or Sedated No (0 pts) Impaired Gait No (0 pts) Mobility Assist Device Used No (0 pt) Altered Elimination No (0 pt) Score/Fall Risk Level 0 - 2 = Low Risk Oriented to surroundings. Abuse screen: Denies threats or abuse. Denies injuries from another. Nutritional screening: No deficits noted. Tuberculosis screening: No symptoms or risk factors identified. Assessment: 16:15 General: Appears in no apparent distress. comfortable, Behavior is calm, cooperative, bp appropriate for age. Injury Description: Laceration sustained to Left first web space is clean, 2.6 to 7.5 cm long, was sustained 30-60 minutes ago. no active bleeding noted at this time. Vital Signs: 16:13 BP 152 / 82; Pulse 72; Resp 17; Temp 98; Pulse Ox 98% ; Weight 104.33 kg; Height 6 ft. jl7 0 in. ; Pain 1/10; 16:13 Body Mass Index 31.19 (104.33 kg, 182.88 cm) jl7 16:13 Pain Scale: Adult jl7 ED Course: 16:04 Patient arrived in ED. cj3 16:04 Anjelica Hernández PA-C is PHCP. sb4 16:04 Waleska Mast MD is Attending Physician. sb4 16:11 Bacilio Samaniego, JOSELITO is Primary Nurse. bp 16:15 Triage completed. jl7 16:15 Arm band placed on right wrist. jl7 16:15 Patient has correct armband on for positive identification. bp 16:15 Patient did not have IV access during this emergency room visit. bp 16:15 Assist provider with laceration repair on Left first web space that was between 2.6 to bp 7.5 cm using sutures. Set up tray. Performed by Anjelica Hernández PA-C Dressed with Neosporin, Patient tolerated well. Administered Medications: 16:16 Drug: Boostrix Tdap IM 0.5 ml IM once; as a single dose Route: IM; Site: right deltoid; bp 16:47 Follow up: Response: No adverse reaction bp 16:16 Drug: Lidocaine Infiltration (1 %) 5 ml 5 ml Infiltration once; to bedside Volume: 5 bp ml; Route: Infiltration; Medication: 16:15 VIS not applicable for this client. bp Outcome: 16:15 Discharged to home ambulatory, bp 16:15 Condition: improved 16:15 Discharge instructions given to patient, Instructed on discharge instructions, follow up and referral plans. wound care, Demonstrated understanding of instructions, follow-up care, wound care, 16:33 Discharge ordered by MD. amaral 17:00 Patient left the ED. bp Signatures: Vinny Jackson RN RN [email or web address] Bacilio Samaniego RN RN Anjelica Ellington, YAO PAKenneth [email or web address] Sonja Slade cj3 Corrections: (The following items were deleted from the chart) 16:15 16:13 Chief complaint: brandan gipson 16:59 16:15 No provider procedures requiring assistance completed. bp bp
--- NOTE | 2025-01-25 16:34 | EDPHYS ---
Physician Documentation [facility] Name: Estevan Larsen III Age: 34 yrs Sex: Male : 1990 Arrival Date: 01/25/2025 Time: 15:58 Bed 12 Private MD: ED Physician Waleska Mast HPI: 01/25 16:33 This 34 yrs old Black Male presents to ER via Ambulatory with complaints of Hand sb4 Injury, Laceration To Hand. 16:33 Sustained laceration to webspace in between thumb and index finger of left hand sb4 accidentally. States that he was using a knife to cut a piece of melvin and accidentally got his hand. Denies any pain, denies any decreased range of motion, weakness, numbness. Does not believe his tetanus shot is up-to-date. Historical: - Allergies: 16:15 No Known Allergies; jl7 - Home Meds: 16:15 None [Active]; jl7 - PMHx: 16:15 Hypertension; jl7 - PSHx: 16:15 None; jl7 - Immunization history:: Adult Immunizations unknown. - Infectious Disease History:: Denies. - Social history:: Smoking status: Patient reports the use of cigarette tobacco products, smokes one-half pack cigarettes per day. ROS: 16:33 Constitutional: Negative for fever, chills, and weight loss, sb4 16:33 Skin: Positive for laceration(s), of the Left first web space, 16:33 All other systems are negative, Exam: 16:33 Constitutional: This is a well developed, well nourished patient who is awake, alert, sb4 and in no acute distress. Head/Face: Normocephalic, atraumatic. Eyes: Extra-ocular motions intact. Periorbital areas with no swelling, redness, or edema. ENT: Mucous membranes moist. Respiratory: No increased work of breathing, no retractions or nasal flaring. 16:33 Skin: injury, laceration(s), the wound is approximately 5 cm(s), with a depth of .5 cm(s), of the Left first web space, that can be described as clean, no foreign body, linear, with mild bleeding, Vital Signs: 16:13 BP 152 / 82; Pulse 72; Resp 17; Temp 98; Pulse Ox 98% ; Weight 104.33 kg; Height 6 ft. jl7 0 in. ; Pain 1/10; 16:13 Body Mass Index 31.19 (104.33 kg, 182.88 cm) jl7 16:13 Pain Scale: Adult jl7 Laceration: 16:35 Wound Repair of 5cm ( 2.0in ) subcutaneous laceration to Left first web space. Distal sb4 neuro/vascular/tendon intact. Anesthesia: Local anesthetic administered with 5 mls of 1% lidocaine. Wound prep: Simple cleansing with hibiclenz by me, Wound irrigation with saline by me. Skin closed with 5 5-0 Prolene using simple sutures and sterile technique. Dressed with non-adherent dressing. Patient tolerated well. MDM: 16:06 Medical Screening Exam initiated sb4 16:35 Data reviewed: vital signs, nurses notes, and as a result, I will discharge patient. sb4 Counseling: I had a detailed discussion with the patient and/or guardian regarding the historical points, exam findings, and any diagnostic results supporting the discharge/admit diagnosis, the presence of at least one elevated blood pressure reading (>120/80) during this emergency department visit, the need for outpatient follow up, for suture removal in 1 week, to return to the emergency department if symptoms worsen or persist or if there are any questions or concerns that arise at home. 01/25 16:33 Order name: Wound dressing; Complete Time: 16:47 sb4 Administered Medications: 16:16 Drug: Boostrix Tdap IM 0.5 ml IM once; as a single dose Route: IM; Site: right deltoid; bp 16:47 Follow up: Response: No adverse reaction bp 16:16 Drug: Lidocaine Infiltration (1 %) 5 ml 5 ml Infiltration once; to bedside Volume: 5 bp ml; Route: Infiltration; Disposition Summary: 01/25/25 16:33 Discharge Ordered Notes: Location: Home sb4 Problem: new sb4 Symptoms: have improved sb4 Condition: Stable sb4 Diagnosis - Laceration without foreign body of left hand, initial encounter sb4 Followup: sb4 - With: Private Physician - When: 1 week - Reason: Staple/Suture removal Discharge Instructions: - Discharge Summary Sheet sb4 - Laceration Care, Adult sb4 Forms: - Patient Portal Instructions sb4 - Leadership Thank You Letter sb4 Addendum: 01/27/2025 07:10 Co-signature as Attending Physician, Waleska Mast MD I agree with the assessment and g b1 plan of care. I reviewed the patient's care provided by the Advanced Practice Provider and agree with the diagnosis and treatment plan. Signatures: Vinny Jackson, RN RN jl7 Bacilio Samaniego RN RN Anjelica Ellington, PA-C PA-C sb4 Waleska Mast MD MD gb1
[2025-01-25 18:07] VITALS: BP 152/82; TEMP 98; O2SAT 98
== END 2025-01-25 17:00 | disposition home or self-care (01) ==
LOC: ER 15:58
DX: S61.412A Laceration without foreign body of left hand, initial encounter (principal); W26.0XXA Contact with knife, initial encounter; Z23 Encounter for immunization
CPT/HCPCS: 12002 ×2; 90715; 96372; 99284; J2003; 12042